=== PATIENT | male | born 1940 | race African-American/Black ===

== ENCOUNTER 2020-04-11 13:12 | Inpatient (IN) | payer MEDICARE, OTHER ==
[~2020-04-11] VITALS: Ht 172.7 cm; Wt 81.6 kg
[2020-04-11] MEDS ORDERED: SODIUM CHLORIDE 0.9% 500ML 500 ML IV ONE (14:30)
[2020-04-11] MEDS ORDERED: CEFTRIAXONE SOD 1 GM/NS 50 ML 50 ML IV ONE (14:30)
[2020-04-11] MEDS ORDERED: AZITHROMYCIN 500MG/NS 250 ML 250 ML IV ONE (14:45)
[2020-04-11 15:15] LABS: BASOPHILS % 0.2 % (0.0-1.0); EOSINOPHILS % 0.4 % (0.0-6.0); HEMATOCRIT 27.5 % (38.2-49.6); HEMOGLOBIN 8.3 g/dL (14.0-18.0); INR 1.47; LYMPHOCYTES # (AUTO) 0.9 (1.0-3.2); MEAN CORPUSCULAR HEMOGLOBIN 27.9 pg (28-32); MEAN CORPUSCULAR HGB CONC 30.2 g/dL (31-35); MEAN CORPUSCULAR VOLUME 92.6 fL (81-99); MONOCYTES # (AUTO) 0.5 (0.2-0.8); MONOCYTES % 9.6 % (4.4-11.3); NEUTROPHILS # (AUTO) 3.3 (2.1-6.9); NEUTROPHILS % 69.8 % (38.7-80.0); PROTHROMBIN TIME 18.8 seconds (11.9-14.5); RED BLOOD COUNT 2.97 x10e6/uL (4.3-5.7); RED CELL DISTRIBUTION WIDTH 18.8 % (11.7-14.4)
[2020-04-11 15:16] LABS: PARTIAL THROMBOPLASTIN TIME 41.7 seconds (23.8-35.5)
[2020-04-11 15:18] LABS: PLATELET COUNT 33 x10e3/uL (140-360)
[2020-04-11 15:24] LABS: ALBUMIN 2.7 g/dL (3.5-5.0); ALBUMIN/GLOBULIN RATIO 0.7 (0.8-2.0); ANION GAP 14.1 mmol/L (8-16); CALCIUM 8.3 mg/dL (8.4-10.2); CREATININE, SERUM 2.26 mg/dL (0.72-1.25); POTASSIUM 4.1 mmol/L (3.5-5.1)
[2020-04-11 15:31] LABS: CREATINE KINASE MB 4.1 ng/mL (0-5.0)
[2020-04-11 15:43] LABS: B-TYPE NATRIURETIC PEPTIDE2 1307.2 pg/mL (0-100)
--- NOTE | 2020-04-11 17:33 | Diagnostic Imaging Report ---
Examination: Single AP view of the chest. COMPARISON: None. INDICATION: Altered mental status DISCUSSION: Lines/tubes: Single-lead ICD. Lungs: The lungs are well inflated. Scattered areas of atelectasis. Pulmonary venous congestion. Pleura: Bilateral pleural effusions. Heart and mediastinum: Prior aortic stent graft with tortuosity. Prominent heart size. Bones and soft tissues: No acute bony abnormalities. IMPRESSION: 1. Cardiomegaly with pulmonary venous congestion and small effusions. Signed by: Dr. Javad Almeida M.D. on 04/11/2020 5:29 PM
--- NOTE | 2020-04-11 17:40 | Diagnostic Imaging Report ---
EXAMINATION: CT of the abdomen and pelvis without contrast. TECHNIQUE: Helical CT images of the abdomen and pelvis were performed from the lung bases to the lesser trochanters. No intravenous contrast was given per protocol. Coronal and sagittal reformatted images were obtained. Dose modulation, iterative reconstruction, and/or weight based adjustment of the mA/kV was utilized to reduce the radiation dose to as low as reasonably achievable. COMPARISON: None. CLINICAL HISTORY:Abdominal pain DISCUSSION: ABSENCE OF INTRAVENOUS CONTRAST DECREASES SENSITIVITY FOR DETECTION OF FOCAL LESIONS AND VASCULAR PATHOLOGY. ABDOMEN/PELVIS: LOWER THORAX: Bilateral pleural effusions and lower lung atelectasis . Cardiomegaly with aortic stent graft. HEPATOBILIARY:No focal hepatic lesions. No biliary ductal dilation. The gallbladder is normal. SPLEEN: No splenomegaly. PANCREAS: No focal masses or ductal dilatation. ADRENALS: No adrenal nodules. KIDNEYS/URETERS: 3 mm calculus within the right kidney. No hydronephrosis. No visualized mass lesions. PELVIC ORGANS/BLADDER: The bladder is normal. PERITONEUM/RETROPERITONEUM: No free air or fluid. LYMPH NODES: No intra-abdominal,retroperitoneal, pelvic or inguinal lymphadenopathy. VESSELS: The aortic stent graft extends below the diaphragm below the kidneys. The distal aorta is enlarged measuring maximum dimension 6.3 cm. Bilateral iliac vessels are additional enlarged most prominent involving the left internal iliac measuring 6.2 cm. GI TRACT: Distal colectomy. Left lower quadrant colostomy. Scattered diverticulosis without inflammatory change. BONES AND SOFT TISSUES: No bony destructive lesions. No soft tissue abnormalities. IMPRESSION: No acute CT finding. Nonobstructing 3 mm right renal calculus. Colonic diverticulosis without inflammatory change. Aortic stent graft with infrarenal abdominal aortic aneurysm measuring up to 6.2 cm additional dilation of the iliac vessels. Signed by: Dr. Javad Almeida M.D. on 04/11/2020 5:37 PM
--- NOTE | 2020-04-11 18:22 | Diagnostic Imaging Report ---
Examination: CT head without contrast Clinical Indication: Confusion; altered mental status. Technique: Transaxial noncontrast images from the skull base through the vertex were obtained. Sagittal and coronal reformatted images were done. Dose modulation, iterative reconstruction, and/or weight based adjustment of the mA/kV was utilized to reduce the radiation dose to as low as reasonably achievable. Comparison: None. Findings: Scalp: No abnormalities. Bones: Intact. No fractures. No blastic or lytic lesions. Brain sulci: Generalized volume loss with prominence of the right great than left temporal horn lateral ventricle. Ventricles: No hydrocephalus. . Extra-axial space: No abnormalities. Parenchyma: There are confluent areas of low-attenuation within subcortical and periventricular white matter, nonspecific, but could represent microvascular ischemic disease. Chronic left cerebellar lacunar infarct. No masses, hemorrhage, or acute cortical based vascular insults. Suprasellar region: No abnormalities. Craniocervical junction: The foramen magnum is patent. No Chiari one malformation. Incidental findings: Atherosclerotic calcification of the cavernous and supraclinoid internal carotid and V4 segments of the bilateral vertebral arteries. Impression: 1. No acute intracranial finding. 2. Generalized volume loss with findings that can be seen in Alzheimer dementia. 3. Chronic microvascular ischemic change. Chronic left cerebellar lacunar infarct. Signed by: Dr. Carmenza Brandon M.D. on 04/11/2020 6:18 PM
[2020-04-11] MEDS ORDERED: DEXTROSE 5%/0.45% SOD CHL 1,000 ML IV ONE ×2 (18:30→20:30)
--- NOTE | 2020-04-11 18:41 | Emergency Department Note ---
History of Present Illnes History of Present Illness Chief Complaint: General Medicine Complaints History of Present Illness This is a 80 year old male sent from [place] for altered mental status and BLOOD IN URINE ONSET TODAY. NO ROBERT. COLOSTOMY. Historian: Orchid Transplanter/EMS Arrival Mode: [facility] Treatment SHOT CORE DRILL OPERATOR: See EMS Report History limited by: condition of the patient Toll Collector Required: No Onset (how long ago): day(s) (2) Radiation: Reports non-radiation Severity: severe Onset quality: gradual Timing of current episode: constant Progression: waxing and waning Chronicity: new Context: Denies recent illness Relieving factors: none Exacerbating factors: none Associated symptoms: Reports denies other symptoms Past Medical/Family History Physician Review I have reviewed the patient's past medical and family history. Any updates have been documented here. Past Medical History Recent Fever: No Clinical Suspicion of Infectio: No New/Unexplained Change in Ment: No Past Medical History: Hypertension, CHF, A-Fib, CAD, Liver Disease, Other Mental Illness, Chronic Kidney Disease Other Medical History: AAA W/O RUPTURE HYPOXIA ACUTE RESP FAILURE GI BLEED HYPOKALEMIA THROMBOCYTOPENIA Past Surgical History: Pacer/AICD Social History Smoking Cessation: Unknown if ever smoked Counseling Performed: No Other Any Pre-Existing Lines (PICC,: No Review of Systems ROS Narrative Unable to obtain ROS: Unable to obtain due to, altered mental status Physical Exam Related Data Allergies: Coded Allergies: No Known Allergies (Unverified , 04/11/20) Triage Vital Signs Vital Signs Date Time Temp Pulse Resp B/P (MAP) Pulse Ox O2 Delivery O2 Flow Rate FiO2 04/11/20 13:14 98.8 89 20 165/118 99 Room Air Vital signs reviewed: Yes Physical Exam CONSTITUTIONAL Constitutional: Present ill appearing HENT HENT: Present normocephalic, Present atraumatic, Present oropharynx clear/moist, Present nose normal HENT L/R: Present left ext ear normal, Present right ext ear normal EYES Eyes: Reports PERRL, Reports conjunctivae normal NECK Neck: Present ROM normal PULMONARY Pulmonary: Present effort normal, Present breath sounds normal CARDIOVASCULAR Cardiovascular: Present regular rhythm, Present heart sounds normal, Present capillary refill normal, Present normal rate GASTROINTESTINAL Abdominal: Present soft, Present nontender, Present bowel sounds normal GENITOURINARY Genitourinary: Present other (clot at penile urethra, no active bleeding) SKIN Skin: Present warm, Present dry MUSCULOSKELETAL Musculoskeletal: Present ROM normal NEUROLOGICAL Neurological: Present other (minimally responds to painful stimuli) PSYCHOLOGICAL Psychological: Present mood/affect normal, Present judgement normal Results Laboratory Result Diagram: 04/11/20 1432 04/11/20 1432 Laboratory Laboratory Tests Test 04/11/20 15:25 04/11/20 14:32 White Blood Count 4.78 x10e3/uL (4.8-10.8) Red Blood Count 2.97 x10e6/uL (4.3-5.7) Hemoglobin 8.3 g/dL (14.0-18.0) Hematocrit 27.5 % (38.2-49.6) Mean Corpuscular Volume 92.6 fL (81-99) Mean Corpuscular Hemoglobin 27.9 pg (28-32) Mean Corpuscular Hemoglobin Concent 30.2 g/dL (31-35) Red Cell Distribution Width 18.8 % (11.7-14.4) Platelet Count 33 x10e3/uL (140-360) Neutrophils (%) (Auto) 69.8 % (38.7-80.0) Lymphocytes (%) (Auto) 19.0 % (18.0-39.1) Monocytes (%) (Auto) 9.6 % (4.4-11.3) Eosinophils (%) (Auto) 0.4 % (0.0-6.0) Basophils (%) (Auto) 0.2 % (0.0-1.0) Neutrophils # (Auto) 3.3 (2.1-6.9) Lymphocytes # (Auto) 0.9 (1.0-3.2) Monocytes # (Auto) 0.5 (0.2-0.8) Eosinophils # (Auto) 0.0 (0.0-0.4) Basophils # (Auto) 0.0 (0.0-0.1) Absolute Immature Granulocyte (auto 0.05 x10e3/uL (0-0.1) Prothrombin Time 18.8 seconds (11.9-14.5) Prothromb Time International Ratio 1.47 Activated Partial Thromboplast Time 41.7 seconds (23.8-35.5) Sodium Level 150 mmol/L (136-145) Potassium Level 4.1 mmol/L (3.5-5.1) Chloride Level 121 mmol/L (98-107) Carbon Dioxide Level 19 mmol/L (22-29) Anion Gap 14.1 mmol/L (8-16) Blood Urea Nitrogen 47 mg/dL (7-26) Creatinine 2.26 mg/dL (0.72-1.25) Estimat Glomerular Filtration Rate 34 ML/MIN (60-) BUN/Creatinine Ratio 21 (6-25) Glucose Level 71 mg/dL (74-118) Calcium Level 8.3 mg/dL (8.4-10.2) Total Bilirubin 0.8 mg/dL (0.2-1.2) Aspartate Amino Transf (AST/SGOT) 33 IU/L (5-34) Alanine Aminotransferase (ALT/SGPT) 44 IU/L (0-55) Alkaline Phosphatase 306 IU/L (40-150) Ammonia 57 UG/DL (31-123) Creatine Kinase 59 IU/L (30-200) Creatine Kinase MB 4.10 ng/mL (0-5.0) Troponin I 0.040 ng/mL (0-0.300) B-Type Natriuretic Peptide 1307.2 pg/mL (0-100) Total Protein 6.6 g/dL (6.5-8.1) Albumin 2.7 g/dL (3.5-5.0) Globulin 3.9 g/dL (2.3-3.5) Albumin/Globulin Ratio 0.7 (0.8-2.0) Lab results reviewed: Yes Imaging Imaging results reviewed: Yes Impressions Examination: Single AP view of the chest. COMPARISON: None. INDICATION: Altered mental status DISCUSSION: Lines/tubes: Single-lead ICD. Lungs: The lungs are well inflated. Scattered areas of atelectasis. Pulmonary venous congestion. Pleura: Bilateral pleural effusions. Heart and mediastinum: Prior aortic stent graft with tortuosity. Prominent heart size. Bones and soft tissues: No acute bony abnormalities. IMPRESSION: 1. Cardiomegaly with pulmonary venous congestion and small effusions. Signed by: Dr. Javad Almeida M.D. on 04/11/2020 5:[address] BRAIN Impression: 1. No acute intracranial finding. 2. Generalized volume loss with findings that can be seen in Alzheimer dementia. 3. Chronic microvascular ischemic change. Chronic left cerebellar lacunar infarct. Signed by: Dr. Carmenza Brandon M.D. on 04/11/2020 6:18 PM EXAMINATION: CT of the abdomen and pelvis without contrast. TECHNIQUE: Helical CT images of the abdomen and pelvis were performed from the lung bases to the lesser trochanters. No intravenous contrast was given per protocol. Coronal and sagittal reformatted images were obtained. Dose modulation, iterative reconstruction, and/or weight based adjustment of the mA/kV was utilized to reduce the radiation dose to as low as reasonably achievable. COMPARISON: None. CLINICAL HISTORY:Abdominal pain DISCUSSION: ABSENCE OF INTRAVENOUS CONTRAST DECREASES SENSITIVITY FOR DETECTION OF FOCAL LESIONS AND VASCULAR PATHOLOGY. ABDOMEN/PELVIS: LOWER THORAX: Bilateral pleural effusions and lower lung atelectasis . Cardiomegaly with aortic stent graft. HEPATOBILIARY:No focal hepatic lesions. No biliary ductal dilation. The gallbladder is normal. SPLEEN: No splenomegaly. PANCREAS: No focal masses or ductal dilatation. ADRENALS: No adrenal nodules. KIDNEYS/URETERS: 3 mm calculus within the right kidney. No hydronephrosis. No visualized mass lesions. PELVIC ORGANS/BLADDER: The bladder is normal. PERITONEUM/RETROPERITONEUM: No free air or fluid. LYMPH NODES: No intra-abdominal,retroperitoneal, pelvic or inguinal lymphadenopathy. VESSELS: The aortic stent graft extends below the diaphragm below the kidneys. The distal aorta is enlarged measuring maximum dimension 6.3 cm. Bilateral iliac vessels are additional enlarged most prominent involving the left internal iliac measuring 6.2 cm. GI TRACT: Distal colectomy. Left lower quadrant colostomy. Scattered diverticulosis without inflammatory change. BONES AND SOFT TISSUES: No bony destructive lesions. No soft tissue abnormalities. IMPRESSION: No acute CT finding. Nonobstructing 3 mm right renal calculus. Colonic diverticulosis without inflammatory change. Aortic stent graft with infrarenal abdominal aortic aneurysm measuring up to 6.2 cm additional dilation of the iliac vessels. Signed by: Dr. Javad Almeida M.D. on 04/11/2020 5:37 PM Procedures 12 Lead ECG Interpretation ECG Interpretation : ECG: ECG 1 Toll Collector: Interpreted by ED physician Date: Apr 11, 2020 Time: 14:45 Rhythm: atrial fibrillation Rate: normal (80) QRS axis: normal Conduction: incomplete LBBB ST segments normal: Yes T wave inversion: V4, V5, V6 T waves flattening: I, II, III, aVL, aVF Clinical Impression: abnormal ECG Critical Care Time Total Critical Care Time (min): 30 Critcal care necessary due to: AVIAN KEEPER failure or compromise, metabolic failure, other Critcal care time spent by me: discussion w consultants, evaluation patient response to tx, examination of patient, order/review laboratory studies, order/review radiographic studies, re-evaluation of patient condition Assessment & Plan Medical Decision Making MDM CBC, CHEM, CARDIACS, ECG, BNP, AMMONIA, PANCX'S, UA, CXR, CT BRAIN, CT ABD/PELVIS, COVID - R/O CREBRAL BLEED, STEMI/NSTEMI, UTI, SEPSIS, PNEUMONIA/COVID, CAUSE OF HEMATURIA Reassessment Reassessment ADMIT DR ANDRADE. I ALSO SPOKE WITH DR MARRUFO ABOUT HEMATURIA - HE SAYS TO NOT PLACE ROBERT Assessment & Plan Final Impression: (1) Altered mental status (2) Hematuria (3) CHF (congestive heart failure) (4) Thrombocytopenia (5) Renal insufficiency (6) Pancytopenia (7) Hypernatremia Depart Disposition: ADMITTED Last Vital Signs Date Time Temp Pulse Resp B/P (MAP) Pulse Ox O2 Delivery O2 Flow Rate FiO2 04/11/20 17:28 98.1 61 20 149/98 97 04/11/20 13:14 Room Air Medications in the ED Sodium Chloride 500 ml @ 0 mls/hr Q0M ONCE IV Last administered on 04/11/20at 15:30; Admin Dose 999 MLS/HR; Start 04/11/20 at 14:30; Stop 04/11/20 at 14:31; Status DC Ceftriaxone Sodium 50 ml @ 100 mls/hr ONCE ONCE IV Last administered on 04/11/20at 15:31; Admin Dose 100 MLS/HR; Start 04/11/20 at 14:30; Stop 04/11/20 at 14:59; Status DC Azithromycin 250 ml @ 200 mls/hr NOW ONCE IV Last administered on 04/11/20at 17:36; Admin Dose 200 MLS/HR; Start 04/11/20 at 14:45; Stop 04/11/20 at 15:59; Status DC HYUN CASTELLANOS MD Apr 11, 2020 18:41
--- NOTE | 2020-04-11 19:23 | NUR ---
H&P cc: hematuria and fluid overload HPI: 80yoM, PCP ??, developed fluid overload and hematuria. Pt cannot provide history. PMH: AAA, colon surgery s/p colostomy PShx: stent to AAA, Left colostomy, cardiac device. Allergies; see emr [facility]; NH resident Meds; see MAR ROS: unobtainable v/s revd PE tired appearing anicteric ns1s2 mod bs Left chest cardiac device palpable Soft abd; left colostomy back no et skin dry flat affect awake confused labs/meds revd A/P: AECHF- IV diuretic; check echo; cardio eval Hematuria- does have thrombocytopenia; may need transfusion; consult hematology and urology MIKE vs CKD- check renal U/S; nephr consult Hypernatremia- check Na level again later today; may need some free water Pancytopenia- f/u counts; hematology eval AAA- has stent in place Right nephrolithiasis- f/u outpt. DIverticulosis-high fiber diet Prop: scd Dispo: f/u echo and renal U/S Ridge Arias MD,PhD.
[2020-04-11] MEDS ORDERED: DOCUSATE SODIUM 100 MG CAP PO PRN (19:30)
[2020-04-11] MEDS ORDERED: ONDANSETRON HCL INJ 2MG/ML 2ML 2 MG/ML VIAL IV PRN (19:30)
[2020-04-11] MEDS ORDERED: ACETAMINOPHEN 325 MG TAB PO PRN (19:30)
--- NOTE | 2020-04-11 19:35 | NUR ---
called laboratory-[facility]- to follow up with platelet orders, platelets are coming from [facility]
[2020-04-11 19:38] LABS: CHOL/HDL RATIO 4.4 (3.9-4.7)
[2020-04-11 19:58] LABS: THYROID STIMULATING HORMONE 4.586 uIU/mL (0.350-4.940)
--- NOTE | 2020-04-11 20:16 | NUR ---
dr ramírez gave orders to change patient from covid pui, to covid general admission. orders read back.
[2020-04-11 20:28] VITALS: BP_SYST 149; BP_SYST 160; BP_DIAS 131; BP_DIAS 98
[2020-04-11] MEDS ORDERED: ZOLPIDEM TARTRATE 5 MG TAB PO PRN (21:00)
[2020-04-11] MEDS: FUROSEMIDE INJ 10 MG/ML 2 ML VIAL IV SCH (21:50)
[2020-04-11] MEDS ORDERED: SODIUM CHLORIDE 0.9% 250ML 250 ML ONE (23:37)
[2020-04-12] VITALS (7 sets, daily range): BP systolic 141–166; BP diastolic 98–131
[2020-04-12 01:14] LABS: COLOR,URINE RED (YELLOW)
[2020-04-12 01:15] LABS: BILIRUBIN,URINE MODERATE (NEGATIVE); CLARITY,URINE CLOUDY (CLEAR); KETONES,URINE TRACE (NEGATIVE); LEUKOCYTE ESTERASE ,URINE NEGATIVE (NEGATIVE); NITRITE,URINE NEGATIVE (NEGATIVE); PROTEIN,URINE DIPSTICK NEGATIVE (NEGATIVE); URINE UROBILINOGEN 1 mg/dL (0.2 - 1)
[2020-04-12 01:18] LABS: AMORPHOUS SEDIMENT,URINE MANY (FEW); BACTERIA,URINE MANY /HPF; EPITHELIAL CELLS,URINE FEW /LPF; RBC,URINE >50 /HPF (0-5); WBC,URINE (MAN) >50 /HPF (0-5)
[2020-04-12] MEDS ORDERED: ULTRAM50 MG PO (01:28)
[2020-04-12] MEDS ORDERED: folic acid PO (01:28)
[2020-04-12] MEDS ORDERED: ARICEPT5 MG PO (01:28)
[2020-04-12] MEDS ORDERED: B-1100 M1 PO (01:28)
[2020-04-12] MEDS ORDERED: VITAMIN D250 MCG PO (01:28)
[2020-04-12] MEDS ORDERED: IPRATROPIU0.2 MG/1 M NEB (01:28)
[2020-04-12] MEDS ORDERED: ATIVAN0.5 MG PO (01:28)
[2020-04-12] MEDS ORDERED: ACETAMINOPHEN325 M1 PO (01:28)
[2020-04-12] MEDS ORDERED: ALBUTEROL0.63 MG/3 INH (01:28)
[2020-04-12] MEDS ORDERED: PROTONIX20 MG PO (01:28)
[2020-04-12] MEDS ORDERED: ASCORBIC ACID500 MG PO (01:28)
[2020-04-12] MEDS ORDERED: CARVEDILOL3.125 MG PO (01:28)
[2020-04-12] MEDS ORDERED: FERROUS SU220 MG/52 PO (01:28)
[2020-04-12] MEDS ORDERED: MIRTAZAPINE15 MG PO (01:28)
[2020-04-12] MEDS ORDERED: THIAMINE H100 MG/1 M PO (01:28)
[2020-04-12] MEDS: FUROSEMIDE INJ 10 MG/ML 2 ML VIAL IV SCH (05:36)
[2020-04-12] MEDS ORDERED: FUROSEMIDE INJ 10 MG/ML 2 ML VIAL IV SCH (06:00)
[2020-04-12 06:47] LABS: BASOPHILS % 0.2 % (0.0-1.0); EOSINOPHILS # (AUTO) 0.1 (0.0-0.4); HEMATOCRIT 27.4 % (38.2-49.6); LYMPHOCYTES # (AUTO) 0.9 (1.0-3.2); MEAN CORPUSCULAR HEMOGLOBIN 27.6 pg (28-32); MEAN CORPUSCULAR HGB CONC 29.2 g/dL (31-35); MEAN CORPUSCULAR VOLUME 94.5 fL (81-99); MONOCYTES # (AUTO) 0.5 (0.2-0.8); MONOCYTES % 8.8 % (4.4-11.3); NEUTROPHILS # (AUTO) 3.7 (2.1-6.9); PLATELET COUNT 65 x10e3/uL (140-360); RED CELL DISTRIBUTION WIDTH 18.9 % (11.7-14.4)
[2020-04-12 07:13] LABS: ALBUMIN 2.5 g/dL (3.5-5.0); ALBUMIN/GLOBULIN RATIO 0.7 (0.8-2.0); CALCIUM 8.2 mg/dL (8.4-10.2); CREATININE, SERUM 2.24 mg/dL (0.72-1.25)
--- NOTE | 2020-04-12 07:17 | NUR ---
patient bp continues to be elevated, spoke to dr mack, new po meds started.
[2020-04-12 08:42] LABS: ANISOCYTOSIS MODERATE; BURR CELLS SLIGHT; POLYCHROMASIA FEW; SCHISTOCYTES FEW
[2020-04-12 08:43] LABS: HYPOCHROMASIA SLIGHT
[2020-04-12 08:44] LABS: PLATELET ESTIMATE MODERATELY DECREASED; PLATELET MORPHOLOGY COMMENT NORMAL; RBC MORPHOLOGY COMMENT ABNORMAL; TEAR DROP CELLS FEW
[2020-04-12] MEDS ORDERED: CARVEDILOL 3.125 MG TAB PO SCH (09:00)
--- NOTE | 2020-04-12 09:26 | NUR ---
COREG GIVEN AND DR ALY AWARE BP STILL ELEVATED
--- NOTE | 2020-04-12 13:03 | Consultation ---
DATE OF CONSULTATION: Consultation is called by the emergency room. CHIEF COMPLAINT/REASON FOR CONSULTATION: Hematuria. HISTORY OF PRESENT ILLNESS: Mr. Corona is an 80-year-old DNR patient for unclear reasons despite only normally being oriented to 1. He was admitted for altered mental status. The patient had a congestive heart failure flare up. Urologically, he is noted to be pancytopenic and have gross hematuria. The patient is unable to provide a history as he is only alert and oriented x1 and is confused. Do not resuscitate order is on the chart. PAST MEDICAL HISTORY: As above, abdominal aortic aneurysm, anemia, [id number] renal failure, congestive heart failure with coronary artery disease, status post colostomy, pancytopenia, hypertension, and liver failure. MEDICATIONS: Please see MAR. ALLERGIES: NKDA. SOCIAL HISTORY: Unable to obtain from the patient. REVIEW OF SYSTEMS: Noncontributory other than problems mentioned above for 12-organ systems. PHYSICAL EXAMINATION: GENERAL: Chronically-ill male, in no acute distress. VITAL SIGNS: Currently, temperature 96.8, pulse 91, respirations 18, and blood pressure 156/114. HEENT: Sclerae icteric. NECK: Supple. BACK: Without costovertebral bilaterally. ABDOMEN: Soft, nondistended. : Normal male external genitalia. EXTREMITIES: Trace edema. NEUROLOGIC: Moves all extremities. PSYCH: Confused. SKIN: Normal color, dry. PERTINENT LABORATORY DATA: CT scan revealing a 3 mm right kidney stone, aortic aneurysm, status post internal stenting, left lower quadrant colostomy. PT of 18.8 and PTT of 41.7. Urinalysis greater than 50 reds and greater than 50 whites. Calcium of 8.3, sodium 126, potassium 4.1, chloride 121, bicarb 19, BUN 47, creatinine 2.26, and glucose 71. Hemoglobin 8.7, hematocrit 27, platelet count 65,000, and white blood cell count 4780. IMPRESSION: 1. Gross hematuria. 2. Urinary tract infection. 3. Kidney stone. 4. Coagulopathy. 5. Thrombocytopenia. 6. Anemia. 7. Leukopenia. 8. Nrvox-bq-hvwoeti renal failure. 9. Hypocalcemia. 10. Hyponatremia. 11. Anemia. 12. Abdominal aortic aneurysm. PLAN: Hem and lytes per the Primary Service. As the patient is a DNR, unclear why he is admitted for altered mental status when his baseline is only oriented x1. The patient is critically ill with multi-system organ failure. Urologically, we would recommend correcting coagulopathy with his liver failure and transfuse platelets, all these would be short-lived benefit. For a 3 mm kidney stone, the patient should pass this, would not instrument the patient and do not place a Reyes catheter. Thank you for allowing us to participate in the care of your patient. We will be happy to follow along with you. MD BROOKS Saavedra/MODL /[id number]
--- NOTE | 2020-04-12 15:35 | NUR ---
Nutrition Screen Note RD Recommendation for Physician: -Recommend advancing to heart healthy diet when medically appropriate Plan of Care: RD following, monitoring for tolerance and adequacy Nutrition reason for involvement: Nutrition Risk Trigger (MST 8) Primary Diagnose(s): altered mental status, CHF, hematuria, hypernatremia, pancytopenia, renal insufficiency, thrombocytopenia PMH: abdominal aortic aneurysm, anemia, [id number] renal failure, congestive heart failure with coronary artery disease, status post colostomy, pancytopenia, hypertension, and liver failure Ht: 68 in Wt:180 lb BMI: 27.4 kg/m2 IBW:[address] Assessment: (04/12/20) Chart reviewed. Labs and meds reviewed. Pt is an 80 year old male admitted with altered mental status, CHF, hematuria, hypernatremia, pancytopenia, renal insufficiency, and thrombocytopenia. Pt is currently NPO and is noted that pt is a poor historian and is confused. There are no previous weights in chart. Nutrition history is limited. Will continue to monitor. Current Diet: NPO Malnutrition Evaluation (04/12/20) Unable to assess. Will re-evaluate at follow-up as appropriate. Diet Education Needs Assessment: Diet education not indicated. Pt is NPO Nutrition Care Level: low Signed: Lachelle Dumont, RD, LD
--- NOTE | 2020-04-12 15:51 | Diagnostic Imaging Report ---
EXAM: Renal Ultrasound INDICATION: ^[id number] ^[id number] COMPARISON: None TECHNIQUE: Transverse and longitudinal images of the kidneys and bladder were obtained. FINDINGS: Right Kidney: Length: 9.1 cm Appearance: Normal echogenicity. Collecting system: No hydronephrosis Stones: None Cyst/Mass: 1.2 cm lower pole anechoic simple cyst. Left Kidney: Length: 8.9 cm Appearance: Normal echogenicity. Collecting system: No hydronephrosis Stones: None Cyst/Mass: None Bladder: Bladder and prostate not well seen. IMPRESSION: No hydronephrosis or renal calculi. Signed by: Ward Ford MD on 04/12/2020 3:48 PM
[2020-04-12] MEDS: CARVEDILOL 12.5 MG TAB PO SCH (17:00)
[2020-04-12] MEDS ORDERED: CHLOROTHIAZIDE SODIUM 500 MG VIAL IV SCH ×2 (18:00→20:00)
[2020-04-12] MEDS ORDERED: DEXTROSE 5% 500ML 500 ML IV ONE (18:45)
[2020-04-12] MEDS ORDERED: DEXTROSE 5% 500 ML IV ONE (19:00)
[2020-04-12] MEDS: DEXTROSE 5% 1,000 ML IV SCH (19:30)
--- NOTE | 2020-04-12 21:36 | Consultation ---
DATE OF CONSULTATION: Renal Consultation HISTORY OF PRESENT ILLNESS: Thank you Dr. Arias for the consult. Mr. Corona is a pleasant 80-year-old male with a past medical history significant for prior history of chronic kidney disease stage 4, history of congestive heart failure, history of hypertension, came into the hospital with altered mental status. Also found to have elevated sodium of 152, creatinine elevated around 2.2 mg/dL. Renal consultation has been asked for the management of the patient's acute kidney injury on chronic kidney disease stage 4, also in the management of patient's hypernatremia. Currently, no fever, no chills. No nausea, no vomiting, no diarrhea. The patient has altered mental status at this time. PAST MEDICAL HISTORY: As outlined above. ALLERGIES: NO KNOWN DRUG ALLERGIES. SOCIAL HISTORY: No tobacco. No alcohol use. FAMILY HISTORY: Noncontributory. REVIEW OF SYSTEMS: See HPI. Otherwise, all systems negative, but were not obtainable. MEDICATIONS: Have all been reviewed per chart. PHYSICAL EXAMINATION: VITAL SIGNS: Blood pressure is 144/104, pulse 84, and respirations 22. The patient is afebrile at this time. HEENT: No cervical lymphadenopathy. NECK: Supple without masses. No obvious JVD. Moist oral mucosa. SKIN: Moist with good skin turgor. CHEST: Chest wall good expansion. No chest wall tenderness. Lungs are clear to auscultation bilaterally mostly. CARDIOVASCULAR: S1 and S2. No gallop, rubs, or murmur. ABDOMEN: Soft. Positive bowel sounds. Nontender. No organomegaly. EXTREMITIES: There is no evidence of lower extremity edema. No clubbing. No cyanosis. NEUROLOGIC: The patient is lethargic and patient is mostly not responding to verbal commands. The patient has altered mental status. Difficult to do a neurological exam. LABORATORY WORKUP: Sodium 152, potassium 4, chloride 120, bicarb 21, BUN 47, creatinine is 2.2, calcium 8.2, and alkaline phosphatase 266. BNP 1307. Chest x-ray shows pulmonary vascular congestion. Albumin is 2.5. IMPRESSION AND PLAN: 1. Acute kidney injury on chronic kidney disease stage III. The patient at baseline has CKD likely from history of hypertension and other chronic medical conditions. I suspect acute kidney injury is secondary to a combination of free water deficit, but the patient overall appears to be more on the hyper volemic side based on the chest x-ray findings and BNP being elevated. I will discontinue the D5 half-normal saline. Place the patient on D5 water at 50 mL/hour. I will diurese the patient with a natriuretic diuretics such as chlorothiazide or Diuril. I would discontinue any furosemide, but that will cause more of a free water loss than the Diuril. Check labs again on a daily basis. We will check urinalysis, serum osmolality, and urine sodium levels as well and make further recommendations. Avoid potential nephrotoxic agents. Avoid IV dye and nonsteroidal anti-inflammatory drugs. We will recheck labs in the morning including basic metabolic panel, Mag and phos. CBC and make further recommendations. 2. Hypertension. Blood pressure is currently stable. We will continue to monitor closely on current medications. 3. Hypernatremia, likely there is a free water deficit. However, overall patient appears to be hyper volemic and would benefit from diuresing with a natriuretic diuretic. 4. We will place the patient on D5 water at 50 mL/hour and we will also place the patient on Diuril and discontinue the IV furosemide. 5. Congestive heart failure exacerbation and fluid overload. We will place the patient on IV Diuril and discontinue the furosemide to allow for less free water loss and more of a natural uresis. Thank you once again for the consultation. I will schedule to follow up with the patient closely along with you and make further recommendations. Jung Jimenez MD /MODL /[id number] cc: Ridge Arias MD
--- NOTE | 2020-04-12 22:11 | NUR ---
IM- progress note O/N see below ROS: unobtainable v/s revd PE tired appearing anicteric ns1s2 mod bs Left chest cardiac device palpable Soft abd; left colostomy back no et skin dry flat affect awake confused labs/meds revd A/P: AECHF- IV diuretic; check echo; cardio eval Hematuria- does have thrombocytopenia; may need transfusion; consult hematology and urology MIKE vs CKD- check renal U/S; nephr consult Hypernatremia- check Na level again later today; may need some free water Pancytopenia- f/u counts; hematology eval AAA- has stent in place Right nephrolithiasis- f/u outpt. DIverticulosis-high fiber diet Prop: scd Dispo: f/u echo and renal U/S 04-12-20 Time of service 825am- stable; cont treatments; f/u labs; f/u counts; start PT; f/u cultures Ridge Arias MD,PhD.
[2020-04-12] MEDS: CEFTRIAXONE SOD 1 GM/NS 50 ML 50 ML IV SCH (22:28)
--- NOTE | 2020-04-12 22:51 | Consultation ---
DATE OF CONSULTATION: 04/12/2020 Cardiology Consultation. REQUESTING PHYSICIAN: Ridge Arias MD. REASON FOR CONSULTATION: Congestive heart failure. HISTORY OF PRESENT ILLNESS: This is an 80-year-old man with history of abdominal aortic aneurysm, coronary artery disease, congestive heart failure, chronic kidney disease, hypertension, atrial fibrillation, and liver disease, who was sent to the ER from his senior care for altered mental status and hematuria. No history could be obtained from the patient due to his altered mental status. Evaluation in the ER demonstrated an elevated BNP of 1307 and creatinine of 2.26 as well as a platelet count of 33. Chest x-ray demonstrates cardiomegaly, pulmonary venous congestion, and small effusions. Cardiology is therefore consulted for further evaluation. REVIEW OF SYSTEMS: Unable to obtain secondary to altered mental status. PAST MEDICAL HISTORY: 1. Abdominal aortic aneurysm. 2. Coronary artery disease. 3. Congestive heart failure. 4. Chronic kidney disease. 5. Hypertension. 6. Atrial fibrillation. 7. Liver disease. PAST SURGICAL HISTORY: 1. Colostomy. 2. AICD. MEDICATIONS: Please see medication list. ALLERGIES: NO KNOWN DRUG ALLERGIES. SOCIAL HISTORY: Unable to obtain secondary to altered mental status. FAMILY HISTORY: Unable to obtain secondary to altered mental status. PHYSICAL EXAMINATION: VITAL SIGNS: Temperature 96 degrees, pulse 88, respiratory rate 24, blood pressure 158/118, and oxygen saturation 97% on 3 L nasal cannula. GENERAL: Chronically ill-appearing man, no acute distress, awake, did not respond to questions. HEENT: Normocephalic and atraumatic. NECK: Supple. No thyromegaly or cervical lymphadenopathy. No carotid bruits. LUNGS: Clear to auscultation bilaterally. No wheezes or crackles. CARDIOVASCULAR: Normal rate. Irregular rhythm. No murmur. Normal S1 and S2. ABDOMEN: Soft and nontender EXTREMITIES: No edema. NEURO: Unable to assess. LABORATORY DATA: Sodium 152, potassium 4, chloride 120, CO2 21, BUN 27, and creatinine 2.24. WBC 5.11, hemoglobin 8, hematocrit 27.4, and platelets 65. EKG, atrial fibrillation, incomplete left bundle-branch block, ST and T-wave abnormality, consider inferolateral ischemia. IMPRESSION: 1. Altered mental status. 2. Hematuria. 3. Congestive heart failure. 4. Coronary artery disease. 5. Atrial fibrillation. 6. Abdominal aortic aneurysm. 7. Thrombocytopenia. 8. Chronic kidney disease. 9. Hypernatremia. RECOMMENDATIONS: The patient's IV Lasix was discontinued by Nephrology and the patient was started on chlorothiazide instead. Given chronic kidney disease, we will defer diuresis to Nephrology. Recommend correction of free water deficit and IV diuresis. The patient's present presence of AICD suggest the patient has chronic systolic heart failure. Titrate up carvedilol for blood pressure control. Monitor the patient closely on telemetry. Hold all antiplatelets and anticoagulation due to thrombocytopenia and active hematuria. Management per Urology. Continue supportive care. We will review echocardiogram. Thank you for this consult. We will continue to follow. Conchis Alfred MD ABS/MODL /[id number]
[2020-04-13] VITALS (8 sets, daily range): BP systolic 104–155; BP diastolic 78–119
[2020-04-13 05:58] LABS: BASOPHILS % 0.2 % (0.0-1.0); EOSINOPHILS # (AUTO) 0.1 (0.0-0.4); EOSINOPHILS % 1.4 % (0.0-6.0); HEMATOCRIT 25.5 % (38.2-49.6); HEMOGLOBIN 7.7 g/dL (14.0-18.0); LYMPHOCYTES # (AUTO) 0.7 (1.0-3.2); MEAN CORPUSCULAR HGB CONC 30.2 g/dL (31-35); MEAN CORPUSCULAR VOLUME 99.2 fL (81-99); MONOCYTES # (AUTO) 0.3 (0.2-0.8); MONOCYTES % 7.9 % (4.4-11.3); NEUTROPHILS # (AUTO) 3.2 (2.1-6.9); NEUTROPHILS % 73.8 % (38.7-80.0); RED BLOOD COUNT 2.57 x10e6/uL (4.3-5.7)
[2020-04-13 06:05] LABS: PLATELET COUNT 46 x10e3/uL (140-360)
--- NOTE | 2020-04-13 06:12 | NUR ---
Dr. Arias notified of critical value of platelets (46). No new order received.
[2020-04-13 06:17] LABS: ANION GAP 14.9 mmol/L (8-16); CALCIUM 8.2 mg/dL (8.4-10.2); CREATININE, SERUM 2.34 mg/dL (0.72-1.25); MAGNESIUM 1.9 MG/DL (1.3-2.1); PHOSPHORUS 4.5 MG/DL (2.3-4.7); POTASSIUM 3.9 mmol/L (3.5-5.1)
--- NOTE | 2020-04-13 06:36 | NUR ---
Dr. Corral notified of critical value of hemoglobin ( 6.6 ) and previous low blood pressure of 83/62 and the administration of midodrine. No new orders received. Dr. Corral aware of patient receiving blood transfusion during dialysis this morning. Addendum: 04/13/20 at 0804 by Kobi Gaines RN Please disregard above entry. Reason: Wrong patient.
--- NOTE | 2020-04-13 07:00 | NUR ---
Patient resting comfortably. No acute distress noted. Walking rounds done. Bedside report given to oncoming nurse.
[2020-04-13] MEDS: CARVEDILOL 12.5 MG TAB PO SCH ×2 (08:35→16:47)
--- NOTE | 2020-04-13 09:52 | Progress Note ---
DATE: 04/13/2020 Renal Progress Note SUBJECTIVE: The patient is followed for chronic kidney disease stage 4, some degree of acute kidney injury as well as for hypernatremia and fluid overload. The patient's breathing has improved significantly today. The patient is on room air. He is much more awake today and responsive. Sodium is slightly higher today at 153. No nausea. No vomiting. Shortness of breath has improved. OBJECTIVE: VITAL SIGNS: Have been noted. Blood pressure is 136/108, 98 pulse, afebrile. LUNGS: Minimal rales at the bases bilaterally. CARDIOVASCULAR: S1 and S2. No rub. ABDOMEN: Soft and nontender. EXTREMITIES: No edema. LABORATORY DATA: Sodium 153, potassium 3.9, BUN is 49, and creatinine is 2.3. Urinalysis did show more than 50 wbc's, more than 50 rbc's. Urine culture still pending. Currently showing gram-negative bacilli. IMPRESSION AND PLAN: 1. Acute kidney injury on chronic kidney disease, stage 4. The patient does appear to have urinary tract infection, possibly pyelonephritis. Recommend empiric IV antibiotics, pending urine culture and sensitivity. Would continue the D5 water since the patient still has elevated sodium. Would increase D5 water to 75 mL/hour. We will decrease the Diuril to once a day. 2. Urinary tract infection. Recommend empiric IV antibiotics pending urine culture and sensitivity. 3. Hypernatremia, combination of free water loss. However, there may be component here of some degree of hypervolemia as well as indicated by the chest x-ray findings. Continue Diuril, but decrease to once a day and we will increase D5 water to 75 mL/h to try to balance out free water deficit with fluid overload causing hypernatremia. 4. Hypertension. Blood pressure is currently stable. Continue to monitor closely. Jung Jimenez MD TH/MODL /[id number] cc: Ridge Arias MD
--- NOTE | 2020-04-13 13:05 | NUR ---
Received a call from pt's son Phani Corona [phone]. States pt came from [facility], was there for rehab, but he and pt's wants pt to go to [facility] if possible. Choice letter placed in front of chart. Will send clinicals once order received.
[2020-04-13] MEDS: DEXTROSE 5% 1,000 ML IV SCH (14:13)
--- NOTE | 2020-04-13 19:11 | Progress Note ---
DATE: 04/13/2020 Cardiology Progress Note SUBJECTIVE: The patient is more awake today, but remains confused per nursing staff. OBJECTIVE: VITAL SIGNS: Temperature 97.1 degrees, pulse 88, respiratory rate 18, blood pressure 136/108, and oxygen saturation 100% on 2 L nasal cannula. GENERAL: Chronically ill-appearing man, no acute distress. Awake and alert. LUNGS: Clear to auscultation bilaterally. No wheezes or crackles. CARDIOVASCULAR: Normal rate. Irregularly irregular rhythm. No murmur. Normal S1 and S2. ABDOMEN: Soft and nontender. EXTREMITIES: No edema. CARDIAC MEDICATIONS: Carvedilol 2.5 mg p.o. b.i.d. and chlorothiazide 250 mg IV q.a.m. LABORATORY DATA: WBC 4.3, hemoglobin 7.7, hematocrit 25.5, and platelets 46. Sodium 153, potassium 3.9, chloride 120, CO2 22, BUN 49, and creatinine 2.34. Telemetry was personally reviewed and interpreted, revealing atrial fibrillation. IMPRESSION: 1. Altered mental status. 2. Hematuria. 3. Urinary tract infection. 4. [id number]-[id number] systolic heart failure. 5. Coronary artery disease. 6. Atrial fibrillation. 7. Abdominal aortic aneurysm. 8. Thrombocytopenia. 9. Chronic kidney disease. 10. Hypernatremia. RECOMMENDATIONS: Diuresis per Nephrology given chronic kidney disease. So continue free water for his hypernatremia, however, would recommend increasing diuretics as well. The patient's blood pressure remains elevated. Further titrate carvedilol if this persists over the next few days. Monitor the patient closely on telemetry. His heart rate is controlled. The patient is not on any antiplatelet therapy or anticoagulation due to thrombocytopenia and hematuria. Continue supportive care. Thank you for this consult. We will continue to follow. Conchis Alfred MD ABS/MODL /[id number]
--- NOTE | 2020-04-13 19:20 | NUR ---
report given to oncoming nurse walking rounds complete.
--- NOTE | 2020-04-13 19:41 | NUR ---
IM- progress note O/N see below ROS: unobtainable v/s revd PE tired appearing anicteric ns1s2 mod bs Left chest cardiac device palpable Soft abd; left colostomy back no et skin dry flat affect awake confused labs/meds revd A/P: AECHF- IV diuretic; check echo; cardio eval Hematuria- does have thrombocytopenia; may need transfusion; consult hematology and urology MIKE vs CKD- check renal U/S; nephr consult Hypernatremia- check Na level again later today; may need some free water Pancytopenia- f/u counts; hematology eval AAA- has stent in place Right nephrolithiasis- f/u outpt. DIverticulosis-high fiber diet Prop: scd Dispo: f/u echo and renal U/S 04-12-20 Time of service 825am- stable; cont treatments; f/u labs; f/u counts; start PT; f/u cultures 7-14 CKD4 appears at baseline; Hypernatremia- free water being given; f/u urine culturtes; Ridge Arias MD,PhD.
--- NOTE | 2020-04-13 20:38 | NUR ---
WOUND CARE INITIAL CONSULT FOR 80 YO MALE ADMITTED TO [facility] FOR ALTERED MENTAL STATUS AND CHF. CALVIN 12 ON STRICT PUP STATUS AND INTERVENTIONS SURFACE: LOW AIR LOSS MATTRESS. LABS: WBC- 4.31 HGB- 7.7 ALBUMIN 2.5 MICRO: BLOOD CULTURE NEGATIVE PRELIMINARY MEDS: CEFTRIAXONE SODIUM URINE CULTURE- GRAM NEGATIVE BACILLUS AND STREPTOCOCCUS SPECIES; PRELIMINARY. SKIN ASSESSMENT COMPLETE; PT PRESENTS WITH 1)SACRAL HEALED STAGE II PRESSURE ULCER; BLANCHABLE REDNESS PRESENT TO PERIWOUND MEASURING 1.5 CM X 1CM. DRY AND INTACT. NO DRAINAGE PRESENT. 2)RIGHT POSTERIOR ASPECT OF HEEL UNSTAGEABLE PRESSURE ULCER. MEASURING 3CM X 5.5 CM; DARK BROWN CAPSULATED DRAINAGE. 3)RIGHT PLANTAR ASPECT OF HEEL UNSTAGEABLE ULCER, MEASURING 1.5 CM X 1.5 CM; 100% CALLUS AND ESCHAR. NO DRAINAGE PRESENT. 4)LEFT HEEL PRESSURE ULCER STAGE II; MEASURING 3 CM X 2 CM X 0.2 CM; 85% YELLOW SLOUGH AND 15% PINK GRANULATION. MINIMAL SEROUS SANGUINOUS DRAINAGE. DISCUSS WITH ASSIGNED FLOOR NURSE POSSIBILITY OF PODIATRY CONSULT AND TO NOTIFY MD OF WOUND CARE TEAM RECOMMENDATIONS. RECOMMENDATIONS: NURSING TO APPLY VENELEX TO HEALED STAGE II PRESSURE ULCER AND RED BLANCHABLE PERIWOUND TO SACRUM AND TO APPLY AN ALLEVYN FOAM DAILY. NURSING TO PAINT WITH BETADINE RIGHT POSTERIOR HEEL AND RIGHT PLANTAR HEEL ULCERS AND TO APPLY AN ALLEVYN FOAM DAILY. NURSING TO CLEAN LEFT HEEL PRESSURE ULCER STAGE II WITH NORMAL SALINE, PAT DRY WITH 4X4 GAUZE, APPLY MESALT, MOISTENED MESALT, APPLY 4X4 GAUZE AND COVER WITH ALLEVYN FOAM DAILY. NURSING TO RECOMMEND MD A PODIATRY CONSULT FOR THIS PATIENT. NURSING TO CONTINUE TO MONITOR PATIENT AND KEEP SKIN CLEAN AND FREE FROM STOOL OR IRRITATING MOISTURE AND CONTINUE TO FOLLOW STRICT PUP INTERVENTIONS DAILY. NURSING TO CONTINUE REPOSITION PT SIDE TO SIDE EVERY TWO HOURS AND TO ENCOURAGE PT TO SELF REPOSITION IN BED NEEDED. NURSING TO CONTINUE TO APPLY AIR LOW AIR MATTRESS. NURSING TO CONTINUE TO OFFLOAD FEET AND HEELS AT ALL TIMES WITH PILLOW SUSPENSION WHEN IN BED. NURSING TO APPLY BILATERAL HEEL PROTECTORS WHILE PT IS IN BED. NURSING TO ASSIST PT OUT OF BED FOR MEALS AND NEEDED. NURSING TO CONTINUE TO ASSIST WITH PT NUTRITIONAL SUPPLEMENTS TO ENSURE PROPER REQUIREMENTS FOR HEALING. NURSING TO RE- CONSULT WOUND CARE NEEDED. Addendum: 04/13/20 at 2043 by Kimberley Arriaga RN Amended: Links added.
[2020-04-13] MEDS: CEFTRIAXONE SOD 1 GM/NS 50 ML 50 ML IV SCH (21:41)
[2020-04-14] VITALS (8 sets, daily range): BP systolic 119–180; BP diastolic 90–112
[2020-04-14] MEDS: DEXTROSE 5% 1,000 ML IV SCH ×2 (02:09→17:34)
--- NOTE | 2020-04-14 02:19 | NUR ---
Patient's blood pressure elevated (141/105) with a HR of 75. Dr. Arias notified. Awaiting call back.
[2020-04-14] MEDS ORDERED: HYDRALAZINE HCL 20 MG/ML VIAL IV ONE (06:00)
[2020-04-14 06:04] LABS: ALBUMIN 2.5 g/dL (3.5-5.0); ALBUMIN/GLOBULIN RATIO 0.7 (0.8-2.0); ANION GAP 8.8 mmol/L (8-16); CALCIUM 8.2 mg/dL (8.4-10.2); CREATININE, SERUM 2.35 mg/dL (0.72-1.25); POTASSIUM 3.8 mmol/L (3.5-5.1)
--- NOTE | 2020-04-14 06:35 | NUR ---
IM- progress note O/N see below ROS: unobtainable v/s revd PE tired appearing anicteric ns1s2 mod bs Left chest cardiac device palpable Soft abd; left colostomy back no et skin dry flat affect awake confused labs/meds revd A/P: AECHF- IV diuretic; check echo; cardio eval Hematuria- does have thrombocytopenia; may need transfusion; consult hematology and urology MIKE vs CKD- check renal U/S; nephr consult Hypernatremia- check Na level again later today; may need some free water Pancytopenia- f/u counts; hematology eval AAA- has stent in place Right nephrolithiasis- f/u outpt. DIverticulosis-high fiber diet Prop: scd Dispo: f/u echo and renal U/S 04-12-20 Time of service 825am- stable; cont treatments; f/u labs; f/u counts; start PT; f/u cultures 7-14 CKD4 appears at baseline; Hypernatremia- free water being given; f/u urine culturtes; 7-15 Na improving; f/u cx Ridge Arias MD,PhD.
--- NOTE | 2020-04-14 07:00 | NUR ---
Waking rounds done. Bed-side report given to oncoming nurse. No acute distress noted. Call light within reach.
[2020-04-14] MEDS ORDERED: HYDRALAZINE HCL 20 MG/ML VIAL IV PRN (08:30)
[2020-04-14] MEDS ORDERED: CHLOROTHIAZIDE SODIUM 500 MG VIAL IV SCH (09:00)
[2020-04-14] MEDS: CARVEDILOL 12.5 MG TAB PO SCH ×2 (09:11→17:00)
[2020-04-14] MEDS: BALSAM PERU/CASTOR OIL 60 GM OINT...G. TP SCH (09:11)
--- NOTE | 2020-04-14 09:53 | Progress Note ---
DATE: 04/14/2020 Renal Progress Note SUBJECTIVE: The patient is followed for acute kidney injury on chronic kidney disease stage 4. Breathing continues to improve. The patient's sodium level is also getting better now. Kidney function is stable at CKD stage 4 level. No nausea, no vomiting, no shortness of breath. OBJECTIVE: VITAL SIGNS: Have been noted. Blood pressure is 121/93, pulse 77. LUNGS: Mostly clear to auscultation bilaterally. CARDIOVASCULAR: S1, S2. No rub. ABDOMEN: Soft, nontender. EXTREMITIES: No edema. LABORATORY DATA: Sodium is better at 148, potassium 3.8, chloride 118, bicarb of 25, BUN is 48, and creatinine is 2.35. IMPRESSION AND PLAN: 1. Acute kidney injury, resolved. 2. Chronic kidney disease stage 4, stable. We will decrease the D5 water rate to 50 mL/h now since the sodium is improved at 148. 3. Hypernatremia, improving. We will decrease D5 water at 50 mL/h and we will likely discontinue Diuril in the next 24-48 hours. 4. Hypertension. Blood pressure is currently controlled. Jung Jimenez MD TH/MODL /[id number]
--- NOTE | 2020-04-14 14:10 | NUR ---
CALLED AND SPOKE WITH , LET HER KNOW GOT ORDER FOR SNF, LET HER KNOW THAT I HAD SPOKEN WITH SON JAZMINE ABOUT [facility] SHE STATED OKAY TO FAX CLINICALS, EDUCATED ABOUT IMM FILED IN CHART. FAXED TO [phone]
--- NOTE | 2020-04-14 15:14 | Progress Note ---
DATE: 04/14/2020 Cardiology Progress note SUBJECTIVE: The patient is more confused today. No history could be obtained. OBJECTIVE: VITAL SIGNS: Temperature is 97.4 degrees, pulse 77, respiratory rate 20, blood pressure 119/90, and oxygen saturation 100% on room air. GENERAL: The patient is less awake today. However, physical exam is limited by the patient combativeness. ABDOMEN: Soft. EXTREMITIES: No edema. Did not cooperate with auscultation of cardiovascular, pulmonary systems. CARDIAC MEDICATIONS: Carvedilol 12.5 mg p.o. b.i.d. and chlorothiazide 250 mg p.o. q.a.m. LABORATORY DATA: Sodium 148, potassium 3.8, chloride 118, CO2 of 25, BUN 48, and creatinine 2.35. TELEMETRY: Telemetry was personally reviewed and interpreted, revealing atrial fibrillation. IMPRESSION: 1. Altered mental status. 2. Hematuria. 3. Urinary tract infection. 4. Acute on chronic systolic heart failure. 5. Elevated right ventricular systolic pressure by echo. 6. Coronary artery disease. 7. Atrial fibrillation. 8. Abdominal aortic aneurysm. 9. Thrombocytopenia. 10. Chronic kidney disease. 11. Hypernatremia. RECOMMENDATIONS: Free water deficit is improving. Continue D5 water per Nephrology. Discussed further diuresis given elevated RVSP and severe systolic heart failure. We will increase Diuril to b.i.d. Continue current cardiac medications otherwise. Blood pressure is controlled. Monitor the patient on telemetry. The patient is not on any anti-platelet therapy or anticoagulation due to thrombocytopenia and hematuria. Continue supportive care. Antibiotics per primary service. Thank you for this consult. We will continue to follow. Conchis Alfred MD ABS/MODL /[id number]
[2020-04-14] MEDS: MEROPENEM 500MG/ NS 50ML 50 ML IV SCH ×2 (17:34→22:53)
[2020-04-14] MEDS: CHLOROTHIAZIDE SODIUM 500 MG VIAL IV SCH (17:35)
--- NOTE | 2020-04-14 19:16 | NUR ---
Patient received lying in bed. AAO x 1. No signs of pain or respiratory distress. 2L NC in place. Fall precautions implemented. Patient instructed to call for assistance when needed. Call light within reach.
--- NOTE | 2020-04-14 19:57 | NUR ---
Two attempts were made for PICC line placement in left and right arm. Both attempts proved proved futile. Dr. Arias was notified. New order received for Midline placement.
--- NOTE | 2020-04-14 20:30 | NUR ---
Midline placement completed on right upper arm. Patient tolerated well.
--- NOTE | 2020-04-14 20:32 | Diagnostic Imaging Report ---
EXAMINATION: CHEST XRAY LINE PLACEMENT INDICATION: PICC placement. COMPARISON: None FINDINGS: TUBES and LINES: There has been interval placement of a right PICC which curls up and terminates within the right subclavian vasculature. No interval change in aortic stent graft and cardiac pacing device. Evaluation of the lungs is limited by motion artifact. No interval change in radiographic appearance of the lungs. IMPRESSION: 1. Interval placement of right PICC which curls and terminates in the right subclavian vasculature. Recommend repositioning. 2. No significant interval change in radiographic appearance of the lungs. Signed by: Ella Ulloa MD on 04/14/2020 8:28 PM
[2020-04-15] VITALS (8 sets, daily range): BP systolic 96–131; BP diastolic 59–101
[2020-04-15] MEDS: MEROPENEM 500MG/ NS 50ML 50 ML IV SCH ×3 (05:52→22:36)
--- NOTE | 2020-04-15 06:26 | NUR ---
IM- progress note O/N see below ROS: unobtainable v/s revd PE tired appearing anicteric ns1s2 mod bs Left chest cardiac device palpable Soft abd; left colostomy back no et skin dry flat affect awake confused labs/meds revd A/P: AECHF- IV diuretic; check echo; cardio eval ESBL E.coli UTi and VRE and Pseudomonas UTI Hematuria- does have thrombocytopenia; may need transfusion; consult hematology and urology MIKE vs CKD- check renal U/S; nephr consult Hypernatremia- check Na level again later today; may need some free water Pancytopenia- f/u counts; hematology eval AAA- has stent in place Right nephrolithiasis- f/u outpt. DIverticulosis-high fiber diet Prop: scd Dispo: f/u echo and renal U/S 04-12- Time of service 825am- stable; cont treatments; f/u labs; f/u counts; start PT; f/u cultures - CKD4 appears at baseline; Hypernatremia- free water being given; f/u urine culturtes; 04-14 Na improving; f/u cx -16 ESBL E.coli UTi and VRE and Pseudomonas UTI. Use merrem and linezolid; ID eval. Ridge Arias MD,PhD.
[2020-04-15 06:45] LABS: ALBUMIN 2.4 g/dL (3.5-5.0); ALBUMIN/GLOBULIN RATIO 0.8 (0.8-2.0); ANION GAP 10.3 mmol/L (8-16); CREATININE, SERUM 2.35 mg/dL (0.72-1.25); MAGNESIUM 1.8 MG/DL (1.3-2.1); PHOSPHORUS 4.4 MG/DL (2.3-4.7); POTASSIUM 3.3 mmol/L (3.5-5.1)
--- NOTE | 2020-04-15 07:00 | NUR ---
Walking rounds done. Patient resting comfortably. Shift report given to oncoming nurse.
[2020-04-15] MEDS: LINEZOLID 600 MG/D5W 300ML 300 ML IV SCH ×2 (07:28→18:08)
[2020-04-15 07:49] LABS: CREATININE,URINE RANDOM 72.56 mg/dL (63-166)
[2020-04-15 08:25] LABS: TOTAL PROTEIN, URINE 786.7 mg/dL (1-14)
--- NOTE | 2020-04-15 08:27 | Diagnostic Imaging Report ---
Examination: Single AP view of the chest. COMPARISON: 04/14/2020 at 1933 INDICATION: CHF DISCUSSION: Right upper extremity PICC has been removed and replaced with a right upper extremity midline catheter, which terminates over the axilla. Thoracic aortic endograft, valvular prosthesis, and left subclavian implantable cardiac device are unchanged. The lungs remain well-inflated with bilateral pleural effusions and bibasilar opacities, likely passive atelectasis. Stable enlargement of the cardiac silhouette with prominence of the interstitium. No acute osseous abnormalities. IMPRESSION: Replacement of right upper extremity PICC with a right upper extremity midline catheter. Stable appearance of the heart and lungs, with persistent enlargement of the cardiac silhouette, interstitial pulmonary edema, and small bilateral pleural effusions. Signed by: Dr. Guille John M.D. on 04/15/2020 8:23 AM
[2020-04-15] MEDS: CHLOROTHIAZIDE SODIUM 500 MG VIAL IV SCH ×2 (09:00→19:24)
[2020-04-15] MEDS: CARVEDILOL 12.5 MG TAB PO SCH ×2 (09:00→17:00)
[2020-04-15] MEDS: POTASSIUM CHLORIDE 20 MEQ TAB CR PO SCH (09:00)
--- NOTE | 2020-04-15 09:12 | Progress Note ---
DATE: 04/15/2020 Renal Progress Note. SUBJECTIVE: Followed for acute kidney injury on chronic kidney disease stage 4, appears to be stabilized, at CKD stage 4 level. Creatinine is 2.35. Sodium is 146. No nausea, no vomiting, no shortness of breath. OBJECTIVE: VITAL SIGNS: Have been noted and are stable. Blood pressure 128/96, pulse 73, afebrile. LUNGS: Mostly clear to auscultation bilaterally with minimal crackles at bases. CARDIOVASCULAR: S1, S2. No rub. ABDOMEN: Soft and nontender. EXTREMITIES: No edema. LABORATORY DATA: Sodium better at 146, potassium 3.3, chloride 115, bicarb 24, BUN 48, creatinine is 2.35, phosphorus 4.4, magnesium 1.8. IMPRESSION AND PLAN: 1. Acute kidney injury, resolved. 2. Chronic kidney disease, stage 4 at baseline. 3. Hypertension, controlled blood pressure. 4. Congestive heart failure exacerbation, on IV Diuril. 5. We will continue for now pending chest x-ray results. If chest x-ray shows improvement in CHF and fluid overload, then can decrease chlorothiazide dose. D5 water is continuing at 50 mL/hour. 6. Hypernatremia, improving. Continue D5 water at 50 mL/hour. Once the sodium has normalized, can discontinue the D5 water. Jung Jimenez MD TH/MODL /[id number]
[2020-04-15] MEDS: BALSAM PERU/CASTOR OIL 60 GM OINT...G. TP SCH (11:19)
[2020-04-15] MEDS ORDERED: POTASSIUM CHLORIDE 20MEQ/100ML 100 ML IV ONE (12:30)
--- NOTE | 2020-04-15 13:27 | NUR ---
SPOKE WITH FACILITY, THEY DID NOT RECEIVE IT FAXED TO [phone].
--- NOTE | 2020-04-15 14:21 | Progress Note ---
DATE: 04/15/2020 Cardiology Progress Note SUBJECTIVE: The patient is awake, but does not respond. OBJECTIVE: VITAL SIGNS: Temperature 96.9 degrees, pulse 84, respiratory rate 19, blood pressure 121/98, and oxygen saturation 100% on room air. GENERAL: Awake, but does not interact. No acute distress. LUNGS: Clear to auscultation bilaterally. No wheeze or crackles. CARDIOVASCULAR: Normal rate. Irregularly irregular rhythm. No murmur. Normal S1 and S2. ABDOMEN: Soft and nontender. EXTREMITIES: No edema. CARDIAC MEDICATIONS: Chlorothiazide 250 mg IV b.i.d., carvedilol 12.5 mg p.o. b.i.d. LABORATORY DATA: Sodium 146, potassium 3.3, chloride 115, CO2 24, BUN 28, creatinine 2.35. TELEMETRY: Telemetry was personally reviewed and interpreted, revealing atrial fibrillation with demand pacing. IMPRESSION: 1. Altered mental status. 2. Hematuria. 3. Urinary tract infection. 4. Acute on chronic systolic heart failure. 5. Elevated right ventricular systolic pressure by echo. 6. Coronary artery disease. 7. Atrial fibrillation. 8. Abdominal aortic aneurysm. 9. Thrombocytopenia. 10. Chronic kidney disease. 11. Hypernatremia. RECOMMENDATIONS: Free water deficit is improving. Continue D5 water per Nephrology. Continue IV diuresis. Replete electrolytes. Monitor the patient on telemetry. The patient is not on any antiplatelet therapy or anticoagulation due to thrombocytopenia and hematuria. Antibiotics per primary service. Thank you for this consult. We will continue to follow. Conchis Alfred MD ABS/MODL /[id number]
--- NOTE | 2020-04-15 15:00 | NUR ---
Spoke with Dr. Arias and notified about the midline site bleeding. Verbal order given to consult Carmita Cummings and remove midline.
--- NOTE | 2020-04-15 15:09 | NUR ---
SNF FACILITY DISCHARGE INFORMATION PATIENT HAS BEEN ACCEPTED TO: NAME: [facility] ADDRESS:[id number] [facility] [id number] ACCEPTING TENNIS NET MAKER: JOSÉ LUIS BENITO MD: REJI ROOM: 618 NURSE CALL REPORT TO: [phone] IMM SIGNED AND OBTAINED (if applicable): IMM THE FOLLOWING DOCUMENTS MUST ACCOMPANY PATIENT FOR TRANSFER: COPIED CHART: PACKET
--- NOTE | 2020-04-15 15:15 | NUR ---
Midline to left upper arm removed per ordered, pressure is applied for 10 minutes. Occlusive dressing applied. Addendum: 04/15/20 at 1809 by Toshia Nugent RN Catheter tip intact.
[2020-04-15] MEDS: DEXTROSE 5% 1,000 ML IV SCH (15:21)
[2020-04-15 18:29] LABS: INR 1.54; PROTHROMBIN TIME 19.5 seconds (11.9-14.5)
[2020-04-15 18:58] LABS: FERRITIN 722.25 ng/mL (21.81-274.66)
--- NOTE | 2020-04-15 19:26 | NUR ---
BP 121/105. HR 66. Given Diuril as scheduled.
--- NOTE | 2020-04-15 19:30 | NUR ---
Patient received lying in bed. AAO x 1. No acute distress noted. Fall precautions implemented. Call light within reach.
[2020-04-16] VITALS (8 sets, daily range): BP systolic 83–155; BP diastolic 53–102
[2020-04-16 06:08] LABS: ANION GAP 10.4 mmol/L (8-16); CALCIUM 7.9 mg/dL (8.4-10.2); CREATININE, SERUM 2.36 mg/dL (0.72-1.25); MAGNESIUM 1.8 MG/DL (1.3-2.1); POTASSIUM 3.4 mmol/L (3.5-5.1)
[2020-04-16] MEDS: MEROPENEM 500MG/ NS 50ML 50 ML IV SCH ×3 (06:31→22:32)
[2020-04-16] MEDS: LINEZOLID 600 MG/D5W 300ML 300 ML IV SCH (07:09)
--- NOTE | 2020-04-16 07:54 | NUR ---
Patient resting in bed , Alert , crackles on auscultation , O2 Sat 89% NC 3L, Respiratory therapist here, put him on High Flow O2 10L, Not in any Acute distress now, Dr Jimenez here, new orders recvd. keep monitoring , bed alarm ON
[2020-04-16] MEDS ORDERED: POTASSIUM CHLORIDE 20MEQ/100ML 100 ML IV ONE (08:15)
[2020-04-16] MEDS ORDERED: FUROSEMIDE INJ 10 MG/ML 4 ML VIAL IV ONE (08:55)
[2020-04-16] MEDS: POTASSIUM CHLORIDE 20 MEQ TAB CR PO SCH (09:00)
[2020-04-16] MEDS: CARVEDILOL 12.5 MG TAB PO SCH ×2 (09:00→17:00)
--- NOTE | 2020-04-16 09:08 | Progress Note ---
DATE: 04/16/2020 Renal Progress Note SUBJECTIVE: Followed for chronic kidney disease stage 4. The patient is at his baseline CKD stage 4. No nausea, no vomiting. Breathing is improved. OBJECTIVE: VITAL SIGNS: Have been noted and are stable. LUNGS: Minimal rales at the bases bilaterally. CARDIOVASCULAR: S1, S2. No rub. ABDOMEN: Soft, nontender. EXTREMITIES: No edema. LABORATORY DATA: Sodium 142, potassium 3.4, BUN 47, creatinine is 2.36, magnesium is 1.8. IMPRESSION AND PLAN: 1. Chronic kidney disease stage 4 at baseline. We will discontinue D5 water now. Sodium is normal. 2. Hypertension. Continue current medications. 3. Anemia of chronic disease, stable. 4. Congestive heart failure. Continue IV Diuril. The patient still has interstitial pulmonary edema. However, patient is not desaturating. He is saturating about 99% to 100% on 2 L nasal cannula. We will consider giving a dose of Lasix as well one time dose and follow up for clinical response. Jung Jimenez MD TH/MODL /[id number]
[2020-04-16] MEDS: CHLOROTHIAZIDE SODIUM 500 MG VIAL IV SCH ×2 (09:55→17:06)
--- NOTE | 2020-04-16 10:55 | NUR ---
WAS TOLD PT DID NOT GO BECAUSE HAD TO BE PUT ON HI-FLOW O2, FACILITY CALLED AND STATES THE AUTH IS ONLY GOOD FOR 48 HOURS.
[2020-04-16] MEDS: BALSAM PERU/CASTOR OIL 60 GM OINT...G. TP SCH (11:21)
--- NOTE | 2020-04-16 12:11 | NUR ---
Patient refused any food, O2 sat is 97% on 10L High flow, not in any acute distress
--- NOTE | 2020-04-16 12:46 | Consultation ---
DATE OF CONSULTATION: 04/16/2020 REASON FOR CONSULTATION: MDR urinary tract infection. Thank you, Dr. Arias, for asking me to see this patient. HISTORY OF PRESENT ILLNESS: The patient is an 80-year-old man, who was referred for MDR urinary tract infection. He is unable to give history due to altered mental status. The chart review showed that he was sent to the emergency department from a detention because of hematuria. There was no mention of fever. The patient has indwelling Reyes catheter. Urine culture later grew E coli, ESBL positive, Pseudomonas aeruginosa on vancomycin-resistant enterococcus. The patient has been evaluated by the Urology service. PAST MEDICAL HISTORY: Hypertension, coronary artery disease, chronic systolic congestive heart failure, atrial fibrillation, chronic kidney disease stage 3, acute respiratory failure, abdominal aortic aneurysm, and hypoglycemia. PAST SURGICAL HISTORY: AICD implant, colostomy. ALLERGIES: NO KNOWN DRUG ALLERGIES. MEDICATIONS: The current antibiotics were: 1. Zyvox 600 mg IV piggyback q.12 hours. 2. Meropenem 500 mg IV piggyback q.8 hours. FAMILY HISTORY: Noncontributory. SOCIAL HISTORY: No alcohol or tobacco use. REVIEW OF SYSTEMS: Unable to obtain. PHYSICAL EXAMINATION: GENERAL: Lethargic. VITAL SIGNS: T-max 98.3, pulse rate 73, respiratory rate 20, blood pressure 103/79, weight 180 pounds. HEENT: Normocephalic and atraumatic. There is no icterus or injection of conjunctivae. There is no ear or nasal discharge. Uncooperative with oral and pharyngeal Examination. LUNGS: With coarse rales. HEART: With normal S1 and S2. ABDOMEN: Colostomy is functioning. Soft. EXTREMITIES: Without edema, clubbing, or cyanosis. SKIN: Without acute erythema. OFFICE CLERK ASSISTANT: Confused. LABORATORY AND DIAGNOSTICS: On 04/13/2020, WBCs 4310, hemoglobin 7.7, platelets 46,000, neutrophils 73.8, lymphocytes 16, monocytes 7.9, eosinophils 1.4, and basophils 0.2. On 04/16/2020, BUN 47, creatinine 2.36. Coronavirus CELESTE not detected. Renal ultrasound showed no hydronephrosis or renal calculi. IMPRESSION: 1. Complicated urinary tract infection with hematuria due to Escherichia coli extended spectrum beta-lactamases positive, Pseudomonas aeruginosa, vancomycin-resistant enterococcus. 2. Fluid overload. PLAN: Stop Zyvox. The VRE urine isolate is penicillin sensitive and meropenem is adequate. Combination of Zyvox and meropenem will further worsen thrombocytopenia and anemia. MD CHOCO Shane/LESLEY /[id number]
--- NOTE | 2020-04-16 13:01 | NUR ---
IM- progress note O/N see below ROS: unobtainable v/s revd PE tired appearing anicteric ns1s2 mod bs Left chest cardiac device palpable Soft abd; left colostomy back no et skin dry flat affect awake confused labs/meds revd A/P: AECHF- IV diuretic; check echo; cardio eval ESBL E.coli UTi and VRE and Pseudomonas UTI Hematuria- does have thrombocytopenia; may need transfusion; consult hematology and urology MIKE vs CKD- check renal U/S; nephr consult Hypernatremia- check Na level again later today; may need some free water Pancytopenia- f/u counts; hematology eval AAA- has stent in place Right nephrolithiasis- f/u outpt. DIverticulosis-high fiber diet Prop: scd Dispo: f/u echo and renal U/S 04-12- Time of service 825am- stable; cont treatments; f/u labs; f/u counts; start PT; f/u cultures 04-13 CKD4 appears at baseline; Hypernatremia- free water being given; f/u urine culturtes; 04-14 Na improving; f/u cx 04-15 ESBL E.coli UTi and VRE and Pseudomonas UTI. Use merrem and linezolid; ID eval. 04-16 Hematology consulted; check CBC; d/c planning to [facility]. D/C held; plts re-eval; family wants addressed PRIOR to d/c. Pt is DNR, but and son would like mgmt of blood counts before d/c. Family has not made decision regarding hospice care. Ridge Arias MD,PhD.
--- NOTE | 2020-04-16 13:11 | Progress Note ---
DATE: 04/16/2020 Cardiology Progress Note SUBJECTIVE: The patient is awake, but did not respond to questions. OBJECTIVE: VITAL SIGNS: Temperature 97.6 degrees, pulse 70, respiratory rate 20, blood pressure 103/85, and oxygen saturation 91%. GENERAL: Chronically ill-appearing man, awake, but does not respond to questions. LUNGS: Clear to auscultation bilaterally. No wheezes or crackles. CARDIOVASCULAR: Normal rate. Irregularly irregular rhythm. No murmur. Normal S1, S2. ABDOMEN: Soft, nontender. EXTREMITIES: No edema. CARDIAC MEDICATIONS: Chlorothiazide 250 mg IV b.i.d. and carvedilol 12.5 mg p.o. b.i.d. LABORATORY DATA: Sodium 142, potassium 3.4, chloride 112, CO2 of 23, BUN 47, and creatinine 2.36. TELEMETRY: Telemetry was personally reviewed and interpreted revealing atrial fibrillation, demand pacing. IMPRESSION: 1. Altered mental status. 2. Hematuria. 3. Urinary tract infection with extended-spectrum beta-lactamases Escherichia coli, Pseudomonas aeruginosa, and vancomycin-resistant Enterococcus faecalis. 4. Acute on chronic systolic heart failure. 5. Elevated right ventricular systolic pressure by echo. 6. Coronary artery disease. 7. Atrial fibrillation. 8. Abdominal aortic aneurysm. 9. Thrombocytopenia. 10. Chronic kidney disease. 11. Hypernatremia, resolved. RECOMMENDATIONS: Free water deficit has improved. D5 water per Nephrology. Continue IV diuretics. Replete electrolytes. Monitor patient on telemetry. The patient is not on any antiplatelet therapy or anticoagulation due to thrombocytopenia and hematuria. Hematuria evaluation per Hematology and Urology respectively. Antibiotics per primary service. Continue current cardiac medications. Thank you for this consult. We will continue to follow. Conchis Alfred MD ABS/MODL /[id number]
--- NOTE | 2020-04-16 14:17 | Diagnostic Imaging Report ---
EXAM: US ABDOMEN COMPLETE DATE: 04/15/2020 5:12 PM INDICATION: Altered mental status, assess for liver disease, splenomegaly COMPARISON: CT abdomen/pelvis from 04/11/2020 FINDINGS: Please note the examination is limited secondary to patient's altered mental status and inability to comply with optimal positioning. The visualized pelvis appears unremarkable. The liver is normal in size measuring 15.4 cm in length. Hepatic echogenicity is within normal limits. No focal hepatic abnormality is identified. The main portal vein is patent with antegrade flow and diameter of 1.2 cm, within normal limits. Echogenic sludge is identified within the lumen of the gallbladder. There is no evidence for shadowing stones or wall thickening. Small amount of pericholecystic fluid is noted. There is no intra or extrahepatic biliary ductal dilatation. The common bile duct measures 3 mm. Sonographic Peguero's sign is negative. The spleen is normal in size measuring 8.5 cm in length and demonstrates an unremarkable sonographic appearance. The right kidney appears decreased in size measuring 8.0 cm in length with decreased cortical thickness and increased cortical echogenicity. The left kidney is at the lower limits of normal for size measuring 8.6 cm in length. Left-sided cortical thickness and echogenicity are within normal limits. There is a subcentimeter cyst identified within the mid right kidney. There is no evidence for solid renal mass, hydronephrosis, or shadowing calculi. The IVC and hepatic veins are prominent. In this patient with history of aortic stent graft and infrarenal abdominal aortic aneurysm, abdominal aorta was better evaluated on the recent prior CT examination. There is no ascites present. IMPRESSION: 1. Biliary sludge noted within the gallbladder with small amount of adjacent pericholecystic fluid. No evidence for shadowing stones, wall thickening, or sonographic Peguero sign to suggest acute cholecystitis. If there is a clinical concern for acute cholecystitis, further evaluation could be performed with nuclear medicine HIDA scan. 2. Prominence of the hepatic veins and IVC which can be seen in the setting of heart failure. 3. Atrophic appearance of the right kidney. 4. Infrarenal abdominal aortic aneurysm, better evaluated on the prior CT examination. Signed by: Dr. Corey Mckeon MD on 04/16/2020 2:14 PM
[2020-04-16 14:22] LABS: HEMATOCRIT 27.8 % (38.2-49.6); HEMOGLOBIN 8.2 g/dL (14.0-18.0); MEAN CORPUSCULAR HEMOGLOBIN 27.7 pg (28-32); MEAN CORPUSCULAR HGB CONC 29.5 g/dL (31-35); MEAN CORPUSCULAR VOLUME 93.9 fL (81-99); RED BLOOD COUNT 2.96 x10e6/uL (4.3-5.7); RED CELL DISTRIBUTION WIDTH 19.9 % (11.7-14.4)
[2020-04-16 14:27] LABS: PLATELET COUNT 33 x10e3/uL (140-360)
--- NOTE | 2020-04-16 15:39 | NUR ---
CALLED [facility] [phone], LET KNOW ALDEN DE [place], SHE STATES WILL LOOSE AUTH ON SUNDAY, IF PT DOES NOT GO, WILL HAVE TO START THE PROCESS OVER AGAIN TO GET AUTH ON SUNDAY. BED WILL BE HELD UNTIL SUNDAY.
--- NOTE | 2020-04-16 16:13 | NUR ---
BP- 83/53, Refused to eat dinner, notified Dr Arias, he said he is gonna talk to patients family.
[2020-04-16] MEDS ORDERED: SODIUM CHLORIDE 0.9% 1000ML 1,000 ML IV SCH (16:30)
--- NOTE | 2020-04-16 16:32 | NUR ---
New order recvd from Dr Arias to give Bolus IV Fluid, He said he talked to the Family, they want to keep the patient here on Weekend
[2020-04-16 17:49] LABS: BAND NEUTROPHILS % (MANUAL) 1 %; EOSINOPHILS % (MANUAL) 1 % (0-7); LYMPHOCYTES % (MANUAL) 10 % (19-48); MONOCYTES % (MANUAL) 5 % (3.4-9.0); NEUTROPHILS % (MANUAL) 83 % (40-74); NUCLEATED RED BLOOD CELLS 2; PLATELET ESTIMATE MODERATELY DECREASED; PLATELET MORPHOLOGY COMMENT FEW LARGE; RBC MORPHOLOGY COMMENT NORMAL
--- NOTE | 2020-04-16 19:25 | NUR ---
Patient received lying in bed. AAO x 1. No signs of pain or respiratory distress. Patient on high flow 10 L NC. Vital signs WNL. .
[2020-04-17] VITALS (7 sets, daily range): BP systolic 70–163; BP diastolic 44–87
[2020-04-17 05:52] LABS: HEMATOCRIT 27.5 % (38.2-49.6); HEMOGLOBIN 8.1 g/dL (14.0-18.0); MEAN CORPUSCULAR HEMOGLOBIN 27.9 pg (28-32); MEAN CORPUSCULAR HGB CONC 29.5 g/dL (31-35); MEAN CORPUSCULAR VOLUME 94.8 fL (81-99); RED CELL DISTRIBUTION WIDTH 20.1 % (11.7-14.4)
[2020-04-17 06:01] LABS: PLATELET COUNT 29 x10e3/uL (140-360)
--- NOTE | 2020-04-17 06:15 | NUR ---
Dr. Arias here to see patient. informed of temperature drop from 92F to 85.5F. No new orders received.
[2020-04-17] MEDS: MEROPENEM 500MG/ NS 50ML 50 ML IV SCH ×3 (06:20→22:00)
[2020-04-17 06:22] LABS: ALBUMIN 2.3 g/dL (3.5-5.0); ALBUMIN/GLOBULIN RATIO 0.7 (0.8-2.0); CALCIUM 8.1 mg/dL (8.4-10.2); CREATININE, SERUM 2.64 mg/dL (0.72-1.25); MAGNESIUM 1.8 MG/DL (1.3-2.1)
--- NOTE | 2020-04-17 06:26 | NUR ---
A message was left on Dr. Steward's voice-mail regarding critical platelet value of 29. Awaiting call back.
--- NOTE | 2020-04-17 06:59 | NUR ---
Walking rounds done. Bed-side report given to oncoming nurse regarding patient's status.
--- NOTE | 2020-04-17 08:03 | NUR ---
Patient resting in bed, Awake with voice stimuli, Vitals stable, on High flow O2 10L.
[2020-04-17] MEDS: CARVEDILOL 12.5 MG TAB PO SCH (09:00)
[2020-04-17] MEDS: POTASSIUM CHLORIDE 20 MEQ TAB CR PO SCH (09:00)
--- NOTE | 2020-04-17 09:03 | NUR ---
Paged Dr Steward again
[2020-04-17] MEDS: CHLOROTHIAZIDE SODIUM 500 MG VIAL IV SCH ×2 (09:16→17:00)
--- NOTE | 2020-04-17 09:42 | NUR ---
IM- progress note O/N see below ROS: unobtainable v/s revd PE tired appearing anicteric ns1s2 mod bs Left chest cardiac device palpable Soft abd; left colostomy back no et skin dry flat affect awake confused labs/meds revd A/P: AECHF- IV diuretic; check echo; cardio eval ESBL E.coli UTi and VRE and Pseudomonas UTI Hematuria- does have thrombocytopenia; may need transfusion; consult hematology and urology MIKE vs CKD- check renal U/S; nephr consult Hypernatremia- check Na level again later today; may need some free water Pancytopenia- f/u counts; hematology eval AAA- has stent in place Right nephrolithiasis- f/u outpt. DIverticulosis-high fiber diet Prop: scd Dispo: f/u echo and renal U/S 04-12- Time of service 825am- stable; cont treatments; f/u labs; f/u counts; start PT; f/u cultures 04-13 CKD4 appears at baseline; Hypernatremia- free water being given; f/u urine culturtes; 04-14 Na improving; f/u cx - ESBL E.coli UTi and VRE and Pseudomonas UTI. Use merrem and linezolid; ID eval. 04-16 Hematology consulted; check CBC; d/c planning to [facility]. D/C held; plts re-eval; family wants addressed PRIOR to d/c. Pt is DNR, but and son would like mgmt of blood counts before d/c. Family has not made decision regarding hospice care. 7-18 Periods of hypotension; d/w son this am; family wants to see pt again today; plt counts 29K today- defer to hematology for mgmt. Pt's son states pt not interactive with him/, but awake and aware of their presence. Ridge Arias MD,PhD.
[2020-04-17 10:12] LABS: OSMOLALITY,SERUM OSMOMETER 321 mOsmol/kg (280-301)
[2020-04-17] MEDS: BALSAM PERU/CASTOR OIL 60 GM OINT...G. TP SCH (10:15)
[2020-04-17] MEDS ORDERED: MIDODRINE 2.5 MG TAB NG SCH (12:00)
[2020-04-17] MEDS: FUROSEMIDE INJ 10 MG/ML 4 ML VIAL IV SCH ×2 (13:38→20:00)
--- NOTE | 2020-04-17 14:44 | NUR ---
Took out the NG Tube, patient not in any acute distress
--- NOTE | 2020-04-17 14:52 | Diagnostic Imaging Report ---
EXAM: Abdomen Radiograph INDICATION: zNG TUBE PLACEMENT COMPARISON: Chest x-ray 04/15/2020. FINDINGS: TUBES and LINES: There is a nasogastric tube in place with distal tip in the right mainstem bronchus. This needs to be retracted and reinserted. Thoracic aortic endograft, valvular prosthesis, and left subclavian implantable cardiac device are unchanged. LOWER CHEST: Bilateral pleural effusions and bibasilar opacities, likely passive atelectasis. ABDOMEN: The bowel loops are unremarkable with no dilatation or signs of obstruction. No pneumoperitoneum. No abnormal abdominal calcifications. BONES AND SOFT TISSUES: No acute osseous lesion. Soft tissues are unremarkable. IMPRESSION: Nasogastric tube in place with distal tip in the right mainstem bronchus. This needs to be retracted and reinserted. Findings were discussed with NIMO Hou taking care of patient at 2:44 PM on 04/17/2020. Signed by: Sudhakar Hill MD on 04/17/2020 2:48 PM
--- NOTE | 2020-04-17 15:05 | NUR ---
Notified Dr Jimenez that rechecked BP its 170/100, New order to DC NG Tube, MELODY Patelorine Tab.
--- NOTE | 2020-04-17 16:04 | NUR ---
Rechecked BP 105/65, NO ACUTE DISTRESS NOTED
[2020-04-17] MEDS ORDERED: SODIUM CHLORIDE 0.9% 250ML 250 ML ONE (17:25)
--- NOTE | 2020-04-17 18:55 | NUR ---
Bedside shift report completed with morning nurse. Pt lying with eyes closed, no response to name call, response to tactile stimulation, RR 18. O2 @10L hi flow NC. Ostomy in place LLQ. Family at bedside. Bed locked. Bed alarm on.
--- NOTE | 2020-04-17 21:08 | NUR ---
Spoke with Dr. Jimenez regarding Pt's BP 88/52. Stated can start Midodrine back if able to obtain an NG tube, informed to call primary Dr. Arias.
--- NOTE | 2020-04-17 21:15 | NUR ---
Spoke with Dr. Arias regarding BP and health status. Informed to call family to verify next step in Pt's treatment for progressive or not.
--- NOTE | 2020-04-17 21:18 | NUR ---
Spoke with sonPhani regarding Pt's change in health. Son agreed to have NG tube for BP medicine, but prefer not to have Pt sent to ICU.
--- NOTE | 2020-04-17 21:22 | NUR ---
Spoke with Dr. Arias ordered to insert NG tube and admin midodrine.
[2020-04-17] MEDS: MIDODRINE 2.5 MG TAB PO SCH (21:30)
--- NOTE | 2020-04-17 22:00 | NUR ---
NG tube inserted in left naris x1 attempt, Pt tolerated well. Stat KUB ordered to check placement.
--- NOTE | 2020-04-17 23:07 | Diagnostic Imaging Report ---
Exam: Limited abdominal film Clinical History: NG tube placement Comparison: KUB 04/17/2020 DISCUSSION: See impression. IMPRESSION: 1. Interval placement of enteric tube which has its distal tip in the proximal fundus and sidehole at the level of the GE junction. Further advancement is recommended. 2. Otherwise, no interval change since the prior exam. The staff physician below has personally reviewed this exam on the date of dictation. Signed by: Dr. Alex Tracy M.D. on 04/17/2020 11:04 PM
[2020-04-18] VITALS (10 sets, daily range): BP systolic 59–115; BP diastolic 31–88
--- NOTE | 2020-04-18 00:10 | NUR ---
KUB revealed further advancement is recommended. Advanced NG tube and reordered KUB.
--- NOTE | 2020-04-18 02:45 | NUR ---
KUB impression coiled in stomach fundus.
--- NOTE | 2020-04-18 03:25 | Diagnostic Imaging Report ---
Exam: Limited Abdominal film Clinical History: NG tube advancement Comparison: KUB 04/17/2020 DISCUSSION: See impression. IMPRESSION: 1. Interval advancement of enteric tube, which has its distal tip projecting coiled in the stomach fundus. 2. Otherwise, no interval change. The staff physician below has personally reviewed this exam on the date of dictation. Signed by: Dr. Alex Tracy M.D. on 04/18/2020 3:22 AM
[2020-04-18] MEDS: FUROSEMIDE INJ 10 MG/ML 4 ML VIAL IV SCH ×3 (04:00→20:00)
--- NOTE | 2020-04-18 04:45 | NUR ---
Radiology unable to verify placement.
--- NOTE | 2020-04-18 05:21 | Diagnostic Imaging Report ---
Examination: Single AP view of the chest. COMPARISON: AP chest 04/15/2020 INDICATION: Shortness of breath, CHF IMPRESSION: Exam limited by patient rotation. 1. Lines and Tubes: Enteric tube is again seen, with distal tip projecting in the stomach fundus. Distal portion of right upper extremity midline catheter projects near the axilla. Stable left upper chest AICD 2. No interval change in bilateral moderate pleural effusions and likely compressive atelectasis of bilateral lower lobes. Bilateral interstitial opacities extending from the bakari, left greater than right, suggesting interstitial edema. 3. Enlarged cardiac silhouette. Central pulmonary venous congestion. Stable thoracic aortic endograft and valvular prosthesis 4. No acute bony abnormalities. Signed by: Dr. Alex Tracy M.D. on 04/18/2020 5:18 AM
[2020-04-18 06:00] LABS: BASOPHILS % 0.2 % (0.0-1.0); HEMATOCRIT 26.5 % (38.2-49.6); HEMOGLOBIN 7.9 g/dL (14.0-18.0); LYMPHOCYTES # (AUTO) 0.2 (1.0-3.2); LYMPHOCYTES % 3.7 % (18.0-39.1); MEAN CORPUSCULAR HEMOGLOBIN 28.4 pg (28-32); MEAN CORPUSCULAR HGB CONC 29.8 g/dL (31-35); MEAN CORPUSCULAR VOLUME 95.3 fL (81-99); MONOCYTES # (AUTO) 0.1 (0.2-0.8); MONOCYTES % 2.7 % (4.4-11.3); NEUTROPHILS # (AUTO) 4.5 (2.1-6.9); NEUTROPHILS % 92.8 % (38.7-80.0); RED BLOOD COUNT 2.78 x10e6/uL (4.3-5.7); RED CELL DISTRIBUTION WIDTH 20.3 % (11.7-14.4)
[2020-04-18] MEDS: MEROPENEM 500MG/ NS 50ML 50 ML IV SCH ×3 (06:00→21:53)
[2020-04-18 06:09] LABS: PLATELET COUNT 21 x10e3/uL (140-360)
--- NOTE | 2020-04-18 06:25 | NUR ---
Dr. Arias rounded informed of NG tube unable to be verified, no further orders. Will call family to discuss new treatment plan.
[2020-04-18 06:34] LABS: ALBUMIN 2.3 g/dL (3.5-5.0); ALBUMIN/GLOBULIN RATIO 0.7 (0.8-2.0); ANION GAP 14.1 mmol/L (8-16); CALCIUM 7.9 mg/dL (8.4-10.2); CREATININE, SERUM 3.23 mg/dL (0.72-1.25); MAGNESIUM 1.7 MG/DL (1.3-2.1); PHOSPHORUS 5.5 MG/DL (2.3-4.7); POTASSIUM 4.1 mmol/L (3.5-5.1)
[2020-04-18] MEDS ORDERED: DEXTROSE 50% SYRINGE 50 ML IV STA (06:53)
--- NOTE | 2020-04-18 06:53 | NUR ---
blood glucose 33mg/dl Dr. Arias ordered 50ml of D50, D5 1/2 NS @30ml/hr. Morning nurse aware of new orders.
[2020-04-18] MEDS ORDERED: DEXTROSE 50% SYRINGE 50 ML IV ONE (07:06)
[2020-04-18 08:09] LABS: ACANTHOCYTES MODERATE; BAND NEUTROPHILS % (MANUAL) 11 %; BURR CELLS SLIGHT; LYMPHOCYTES % (MANUAL) 6 % (19-48); MONOCYTES % (MANUAL) 4 % (3.4-9.0); NEUTROPHILS % (MANUAL) 79 % (40-74); NUCLEATED RED BLOOD CELLS 3; RBC MORPHOLOGY COMMENT ABNORMAL
--- NOTE | 2020-04-18 08:10 | NUR ---
Dr. Arias gave order for hospice eval. States he will call the family today and update them on pt's status and hospice recommendation. He will let CM know once he has that conversation.
[2020-04-18] MEDS: DEXTROSE 5%/0.45% SOD CHL 1,000 ML IV SCH (08:16)
[2020-04-18 08:35] LABS: BAND NEUTROPHILS % (MANUAL) 2 %; LYMPHOCYTES % (MANUAL) 5 % (19-48); MONOCYTES % (MANUAL) 1 % (3.4-9.0); NEUTROPHILS % (MANUAL) 92 % (40-74); NUCLEATED RED BLOOD CELLS 6
[2020-04-18 08:36] LABS: ANISOCYTOSIS MODERATE; PLATELET ESTIMATE MARKEDLY DECREASED; RBC MORPHOLOGY COMMENT ABNORMAL; TARGET CELLS FEW
[2020-04-18 08:37] LABS: OVALOCYTES FEW
[2020-04-18 08:39] LABS: SCHISTOCYTES FEW
[2020-04-18 08:40] LABS: HYPOCHROMASIA SLIGHT
[2020-04-18 08:43] LABS: ACANTHOCYTES FEW
[2020-04-18 08:44] LABS: BURR CELLS SLIGHT; PLATELET MORPHOLOGY COMMENT NORMAL; TEAR DROP CELLS FEW
[2020-04-18] MEDS: CHLOROTHIAZIDE SODIUM 500 MG VIAL IV SCH ×2 (09:00→17:00)
--- NOTE | 2020-04-18 09:52 | NUR ---
CM called and spoke with pt's son Phani. He stated he spoke with Dr. Arias regarding pt's status. The family is now agreeable with hospice. States they used [facility] for grandma and would like to use them again. Referral faxed to [facility] at [phone] / . CM called and spoke with Ronald at [facility] and notified of referral. States a rep with contact CM once referral received. Choice letter placed in front of chart.
--- NOTE | 2020-04-18 10:11 | NUR ---
Platelet level notified to Sudha (BRAIN Steward), she said she will call back with the orders
--- NOTE | 2020-04-18 10:13 | NUR ---
Called Radiology to check the NG Tube is OK to use, they said they will call back after checking with Radiologist
--- NOTE | 2020-04-18 10:23 | NUR ---
Per Radiologist ( Dr Holguin) NG Tube is OK to use
--- NOTE | 2020-04-18 10:42 | NUR ---
Per PA of Dr Steward, no orders for any Transfusion now
--- NOTE | 2020-04-18 10:55 | NUR ---
Called [facility] to see if they received faxed referral. Spoke with answering service. States will have intake call CM back. Also called and left message for rep Reba with [facility]. Awaiting callback.
--- NOTE | 2020-04-18 11:01 | NUR ---
Bladder Scan done 116 ml, Notified Dr Myers 0, He said No Reyes catheter for now
[2020-04-18] MEDS: MIDODRINE 2.5 MG TAB PO SCH ×2 (11:14→14:31)
--- NOTE | 2020-04-18 11:31 | NUR ---
Received callback from Francie at [facility] [phone]. State they don't have a nurse today to come evaluate pt, but will have one tomorrow. She will reach out to the family now to discuss consent.
[2020-04-18] MEDS: BALSAM PERU/CASTOR OIL 60 GM OINT...G. TP SCH (11:51)
--- NOTE | 2020-04-18 15:45 | NUR ---
IM- progress note O/N see below ROS: unobtainable v/s revd PE tired appearing anicteric ns1s2 mod bs Left chest cardiac device palpable Soft abd; left colostomy back no et skin dry flat affect awake confused labs/meds revd A/P: AECHF- IV diuretic; check echo; cardio eval ESBL E.coli UTi and VRE and Pseudomonas UTI Hematuria- does have thrombocytopenia; may need transfusion; consult hematology and urology MIKE vs CKD- check renal U/S; nephr consult Hypernatremia- check Na level again later today; may need some free water Pancytopenia- f/u counts; hematology eval AAA- has stent in place Right nephrolithiasis- f/u outpt. DIverticulosis-high fiber diet Prop: scd Dispo: f/u echo and renal U/S 04-12- Time of service 825am- stable; cont treatments; f/u labs; f/u counts; start PT; f/u cultures 04-13 CKD4 appears at baseline; Hypernatremia- free water being given; f/u urine culturtes; 04-14 Na improving; f/u cx - ESBL E.coli UTi and VRE and Pseudomonas UTI. Use merrem and linezolid; ID eval. 7-17 Hematology consulted; check CBC; d/c planning to [facility]. D/C held; plts re-eval; family wants addressed PRIOR to d/c. Pt is DNR, but and son would like mgmt of blood counts before d/c. Family has not made decision regarding hospice care. 7-18 Periods of hypotension; d/w son this am; family wants to see pt again today; plt counts 29K today- defer to hematology for mgmt. Pt's son states pt not interactive with him/, but awake and aware of their presence. 7-19 Multiorgan failure with Acute resp failure on NRBM; MIKE,worsening; Hypoglycemia- give dextrose; AMS, with baseline dementia but now worse; Worsening bone marrow function with worsening platelet count, Septic Shock needing pressors, but family opted to proceed with hospice care; consulted CM for Hospice eval. Ridge Arias MD,PhD.
[2020-04-18] MEDS: MIDODRINE HCL 5 MG TABLET PO SCH (15:52)
--- NOTE | 2020-04-18 19:10 | NUR ---
Completed bedside shift report with morning nurse. Pt lying with eyes closed, no response to name call, response to tactile stimulation, RR 18. O2 @10L hi flow NC and nonrebreather. Ostomy in place LLQ. Family at bedside. Bed locked. Bed alarm on.
[2020-04-19] VITALS: BP 78/56
[2020-04-19 04:00] VITALS: BP 76/50
--- NOTE | 2020-04-19 04:10 | NUR ---
Spoke with Dr. Arias regarding BP 76/50, ordered x1 dose Midodrine 5mg.
[2020-04-19] MEDS: MIDODRINE HCL 5 MG TABLET PO SCH ×3 (04:15→12:00)
[2020-04-19] MEDS: FUROSEMIDE INJ 10 MG/ML 4 ML VIAL IV SCH ×2 (04:45→12:00)
[2020-04-19] MEDS: MEROPENEM 500MG/ NS 50ML 50 ML IV SCH ×2 (05:27→13:45)
[2020-04-19 06:14] LABS: ANION GAP 15.2 mmol/L (8-16); CALCIUM 7.7 mg/dL (8.4-10.2); CREATININE, SERUM 3.75 mg/dL (0.72-1.25); MAGNESIUM 1.8 MG/DL (1.3-2.1); PHOSPHORUS 6.2 MG/DL (2.3-4.7); POTASSIUM 4.2 mmol/L (3.5-5.1)
[2020-04-19] MEDS: DEXTROSE 5%/0.45% SOD CHL 1,000 ML IV SCH (07:00)
--- NOTE | 2020-04-19 07:00 | NUR ---
RCD PT AT BED PT IS NOT ALERT ,NOT ORIENTED RESPONDING ONLY FOR PAINFUL STIMULI ,PT ON O2 10L BY NONREBREATHER MASK IV PATENT BED LOW AND LOCKED CALL LIGHT IN REACH
[2020-04-19] MEDS ORDERED: DEXTROSE 50% SYRINGE 50 ML IV ONE (07:21)
--- NOTE | 2020-04-19 07:30 | NUR ---
BLOOD SUGAR [address] ALY GOT THE ORDER DEXTROSE 50% IV STAT AND PRN
[2020-04-19] MEDS ORDERED: DEXTROSE 50% SYRINGE 50 ML IV PRN (08:00)
[2020-04-19 08:52] VITALS: BP 78/62
[2020-04-19 08:58] VITALS: BP 78/62
[2020-04-19] MEDS: BALSAM PERU/CASTOR OIL 60 GM OINT...G. TP SCH (09:00)
[2020-04-19] MEDS: CHLOROTHIAZIDE SODIUM 500 MG VIAL IV SCH (09:00)
--- NOTE | 2020-04-19 10:00 | NUR ---
DRESSING CHANGED ON BOTH HEELS AND LOWER BACK
--- NOTE | 2020-04-19 10:16 | NUR ---
[facility] NURSE JOSE ALBERTO ROWE IS MEETING SON IN ROOM TO SIGN UP FOR SERVICES BETWEEN 1030 AND 12 TODAY.
[2020-04-19 10:30] VITALS: BP 127/40
--- NOTE | 2020-04-19 11:30 | NUR ---
WHILE TAKING HOURLY ROUNDS CHECK THE PT RESPIRATION IS SHALLOW CHECKED O2 SATURATION I AM NOT GETTING THE O2 NOTIFIED THE RESPIRATORY THEY CAME AND CHECKED THEY DID NOT GET [facility] THE PT IN 10 L O2 BY NON BREATHER MASK ,NOTIFIED THE FAMILY
--- NOTE | 2020-04-19 11:45 | NUR ---
FAMILY WITH THE PATIENT NOW
[2020-04-19 12:00] VITALS: BP 110/52
--- NOTE | 2020-04-19 12:54 | Progress Note ---
DATE: 04/17/2020 Renal Progress Note Case discussed with Dr. Arias. SUBJECTIVE: Mr. Corona is followed for acute kidney injury on chronic kidney disease stage 4. The patient's creatinine has worsened overnight. His overall clinical condition is also worsened. He is requiring more oxygen. He is on high-flow oxygen by nasal cannula at least 10 L, the patient has become hypotensive overnight and the patient may or may not be septic. Initially his COVID test was negative, however, would recommend to recheck him for COVID-19. In any case, the patient is also followed by Urology, who has asked not to place a Reyes catheter at this time. The patient's urine output has also decreased. He is remaining on IV Diuril. He has worsening shortness of breath. OBJECTIVE: VITAL SIGNS: Noted. Last blood pressure was in the 80s systolic over 60s diastolic. Pulse is in the 40s, 20 respirations. The patient is hypothermic, 92% on high-flow nasal cannula oxygen saturations. LUNGS: Bilateral rhonchi. CARDIOVASCULAR: S1, S2. No rub. ABDOMEN: Soft. Positive bowel sounds. EXTREMITIES: No edema. LABORATORY DATA: Potassium is 4, BUN 48, creatinine is 2.6, and magnesium is 1.8. IMPRESSION AND PLAN: 1. Acute kidney injury on chronic kidney disease stage 4. The patient continues to have worsening acute kidney injury, stayed overnight likely developing acute tubular necrosis from hypotension and hypoperfusion state. I would recommend ICU monitoring, however, if the patient's family is deciding on hospice care and no aggressive care, then perhaps it would be okay to leave the patient on the floor. Case has been discussed with Dr. Arias. Would continue off IV fluids. The patient has a poor ejection fraction and is fluid overloaded. Recommend to diurese more aggressively. 2. Hypotension. Discontinue all blood pressure medications. We will add midodrine via NG tube 5 mg three times a day to help improve the blood pressure. 3. CHF exacerbation. Continue IV Diuril. We will add Lasix 40 mg IV q.8 hours one dose now and monitor repeat follow up chest x-ray and BNP level. Prognosis appears poor. May also be having worsening shortness of breath possibly from pneumonia. Would recommend to rule out for COVID again. 4. Hypokalemia has resolved now. We will discontinue the potassium supplementations in the setting of the patient having worsening kidney function, he may develop actually hyperkalemia. Thank you once again. Jung Jimenez MD /MODL /[id number]
--- NOTE | 2020-04-19 12:54 | Progress Note ---
DATE: 04/19/2020 Medicine Progress Note SUBJECTIVE: I am covering for Dr. Ridge Arias. This patient has been here for a significant period of time, very ill individual. Family has agreed to hospice services. Dr. Arias has spoken to them about hospice and which they have agreed to. I have also spoke to case management today. Family is in agreement and they are in the process of transition into inpatient hospice. Overall, the patient looks very ill. He is on a non-rebreather, desatting. Last blood pressure recorded was 110/52 and his temperature is 96.8. The patient is also being treated with IV antibiotics for underlying urinary tract infection. ID was following as well. Cardiology was involved in this patient's care as well. Due to the overall worsening state, the family has agreed to inpatient hospice services. We are in the process of working on that. Hospice company did speak with the family and they are in the process of arranging all of that at this current moment. Otherwise, once he has been approved, the patient can be discharged to inpatient hospice as per family's wishes. MD IVETH Leonard/LESLEY /[id number]
--- NOTE | 2020-04-19 13:00 | NUR ---
AC TO HOSPICE NURSE [facility] APPROVED BY THE PATIENT ,SHE WILL CALL TO DISCHARGE THE PATIENT
--- NOTE | 2020-04-19 13:44 | NUR ---
AMBULANCE WILL BE HERE TO ORTHOPTIST PT IN 30 TO 45 MINUTES, OOH DNR IS ON CHART, LET DR ANAYA KNOW.
--- NOTE | 2020-04-19 13:45 | NUR ---
REPORT GIVEN TO DANTE SUERO ,SHE SAID DO NOT REMOVE IV LINE
--- NOTE | 2020-04-19 13:47 | NUR ---
PAGED AND TALKED DR ANAYA ( COVERING DR ALY ) PT IS APPROVED BY [facility] GOT THE DISCHARGE ORDER
--- NOTE | 2020-04-19 15:17 | NUR ---
PATIENT DISCHARGED TO [facility] IN SAFE CONDITION
== END 2020-04-19 15:17 | disposition hospice, inpatient (51) | DRG 291 ==
LOC: ER 13:31 → ERHOLD 18:24 → MED/SURG2 21:10 → OBSVTOIN 04-13 08:11
PROVIDERS: ADMIT Internal Medicine; ATTEND Internal Medicine
PROC: 30233R1 Transfusion of Nonautologous Platelets into Peripheral Vein, Percutaneous Approach (ICD-10-PCS; 2020-04-11)
PROC: 02HV33Z Insertion of Infusion Device into Superior Vena Cava, Percutaneous Approach (ICD-10-PCS; principal; 2020-04-14)
PROC: B548ZZA Ultrasonography of Superior Vena Cava, Guidance (ICD-10-PCS; 2020-04-14)
DX: I13.0 Hypertensive heart and chronic kidney disease with heart failure and stage 1 through stage 4 chronic kidney disease, or unspecified chronic kidney disease (principal); I50.23 Acute on chronic systolic (congestive) heart failure; A41.9 Sepsis, unspecified organism; R65.21 Severe sepsis with septic shock; J96.00 Acute respiratory failure, unspecified whether with hypoxia or hypercapnia; N17.0 Acute kidney failure with tubular necrosis; N18.4 Chronic kidney disease, stage 4 (severe); D61.818 Other pancytopenia; N17.9 Acute kidney failure, unspecified; N39.0 Urinary tract infection, site not specified; E87.1 Hypo-osmolality and hyponatremia; N10 Acute pyelonephritis; Z16.22 Resistance to vancomycin related antibiotics; Z16.24 Resistance to multiple antibiotics; Z93.3 Colostomy status; I48.91 Unspecified atrial fibrillation; I25.10 Atherosclerotic heart disease of native coronary artery without angina pectoris; Z95.810 Presence of automatic (implantable) cardiac defibrillator; D69.6 Thrombocytopenia, unspecified; Z11.59 Encounter for screening for other viral diseases; N20.0 Calculus of kidney; Z87.442 Personal history of urinary calculi; K57.90 Diverticulosis of intestine, part unspecified, without perforation or abscess without bleeding; I71.4 Abdominal aortic aneurysm, without rupture; Z66 Do not resuscitate; R31.0 Gross hematuria; E83.51 Hypocalcemia; B96.20 Unspecified Escherichia coli [E. coli] as the cause of diseases classified elsewhere; B96.5 Pseudomonas (aeruginosa) (mallei) (pseudomallei) as the cause of diseases classified elsewhere; D63.8 Anemia in other chronic diseases classified elsewhere; E87.6 Hypokalemia
CPT/HCPCS: 36415; 70450; 71045; 74018; 74176; 76700; 76770; 80048; 80053; 80061; 81001; 82140; 82550; 82553; 82570; 82607; 82728; 82746; 82948; 83010; 83540; 83615; 83735; 83880; 83930; 83935; 84100; 84156; 84300; 84443; 84466; 84484; 85007; 85025; 85027; 85045; 85379; 85384; 85610; 85730; 86850; 86900; 87040; 87086; 87186; 93005; 93306; 96361; 97139; 99284; G0378; J0360; J0456; J0696; J1940; J2020; J3480; J7040; J7050; J7070; J7799; P9034; U0002